=== PATIENT | male | born 1945 | race Caucasian/White ===

== ENCOUNTER 2021-04-11 09:56 | Outpatient (REF) | payer BC, SELFPAY ==
--- NOTE | ~2021-04-11 | XR_ITS ---
EXAMINATION: XR SHOULDER, RIGHT CLINICAL INFORMATION: Right shoulder pain. COMPARISON: None TECHNIQUE: AP external rotation, Grashey, scapular Y, and axillary views of the right shoulder. FINDINGS: Prominent acromioclavicular marginal osteophytes with a possible unfused, corticated osteophyte superiorly. Mild glenohumeral joint space narrowing with tiny marginal osteophytes. Probable bone island within the humeral head. No concerning lytic osseous lesion. No fracture or dislocation. 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
== END 2021-04-11 09:57 | disposition home or self-care (01) ==
LOC: HO.XRAY 09:56
PROVIDERS: PCP Internal Medicine; Visit Provider Psychiatry & Neurology Neurology
DX: M25.511 Pain in right shoulder (principal)
CPT/HCPCS: 73030

== ENCOUNTER 2022-08-08 10:00 | Outpatient (RCR) | payer BC, SELFPAY | END 2022-08-13 13:38 | disposition home or self-care (01) | LOC: HO.PT 10:00 | PROVIDERS: PCP Internal Medicine; Visit Provider Student in an Organized Health Care Education/Training Program | DX: M54.16 Radiculopathy, lumbar region (principal) | CPT/HCPCS: 97014; 97110; 97162 ==

== ENCOUNTER 2023-07-27 11:40 | Observation (INO) | payer MEDICARE, SELFPAY ==
--- NOTE | ~2023-07-27 | CT_ITS ---
EXAMINATION: CT HEAD WITHOUT CONTRAST CLINICAL INFORMATION: Slurred speech. COMPARISON: 12/30/2019 TECHNIQUE: Contiguous axial imaging was performed from the skull base to vertex without intravenous administration of contrast. This CT examination was performed using dose optimization techniques as appropriate, variously including the following: *Automated exposure control *Adjustment of mA and/or kV according to patient size (this includes techniques or standardized protocols for targeted exams where dose is matched to indication/reason for exam; i.e. extremities or head) *Use of iterative reconstruction technique DLP: 597 mGy-cm FINDINGS: There is mild cerebral volume loss with prominence of the lateral and the third ventricles. The cortical sulci are widened appropriately. The fourth ventricle and basal cisterns are normally outlined. There is mild bilateral periventricular and central white matter diminished attenuation. There is an anterior left basal ganglia hypodensity without mass effect. There is no acute territorial defect, hemorrhage or midline shift. Intra-axial spaces are unremarkable. Calvarium: Intact. Maxillofacial sinuses and mastoids: Clear as visualized. CT/CT head/brain wo IV con IMPRESSION: Mild cerebral volume loss and mild bilateral periventricular and central white matter diminished attenuation which is nonspecific but likely to represent microvascular disease. Left anterior basal ganglia hypodensity without mass effect most consistent with an old infarct. No acute intracranial abnormality identified.
--- NOTE | ~2023-07-27 | MR_ITS ---
EXAMINATION: MR BRAIN WITHOUT CONTRAST CLINICAL INFORMATION: Aphasia COMPARISON: Same day CT head, MRI brain 12/31/2019 TECHNIQUE: MRI of the brain was obtained using routine sequences without contrast. FINDINGS: There is no reduced diffusion to suggest acute infarct. Chronic lacunar infarctions along the left caudate head/basal ganglia. Susceptibility weighted sequence is within normal limits. No mass effect, extra-axial collection, midline shift, or other herniation. Generalized cerebral volume loss with associated ventricular and sulcal prominence. Periventricular and subcortical T2/FLAIR hyperintense foci are nonspecific but likely represent chronic microvascular ischemic change. Small foci of T2 hyperintensity in the right lateral temporal lobe may represent a site of prior traumatic injury and appear comparable to the prior examination of 2019. Intracranial flow voids are preserved. Scattered ethmoid air cell mucosal thickening. The mastoid air cells are well-aerated. Bilateral intraocular lens replacements. No focal expansile/destructive osseous lesion. Approximately 5 mm T1 hypointense focus in the pituitary gland (4-13) MR/MR head/brain wo con IMPRESSION: No acute infarction. Chronic lacunar infarctions along the left caudate head/left anterior basal ganglia. There is a questionable T1 hypointense focus along the right aspect of the pituitary gland. Correlation with pituitary function tests is recommended and dedicated sella protocol MRI can be performed if clinically indicated.
[2023-07-27 11:49] VITALS: BP 143/79; PULSE 62; RESP 18; TEMP 36.2; O2SAT 97; BMI 20.6
--- NOTE | 2023-07-27 11:51 | ED_ITS ---
HPI - Neuro Symptoms/Deficit General Chief Complaint: Neuro Symptoms/Deficit Stated Complaint: Stroke 07/23 Time Seen by Provider: 07/27/23 17:26 Source: patient and family () Mode of arrival: ambulatory Limitations: no limitations History of Present Illness HPI Narrative: A 77-year-old male history of Parkinson's disease and multiple history of strokes in the past presented with his for evaluation of speech abnormality. Started 4 days ago on when patient had 5 minutes of aphasia then stated that patient was able to talk after 5 minutes but slower than his baseline, patient also is known to have Parkinson's stated that the patient is more tremors on the right side than his baseline. Patient's symptoms started 4 days ago and patient did not seek medical attention until today. Patient is walking at his baseline except increased tremors, as per family patient is speaking slower than his baseline. Related Data Allergies Allergy/AdvReac Type Severity Reaction Status Date / Time No Known Allergies Allergy Verified 07/27/23 11:54 [No Known Allergies*] Review of Systems 2 Review of Systems: All other systems are reviewed and are negative Constitutional: Reports as per HPI and Reports no additional constitutional complaints Eyes: Reports as per HPI and Reports no additional eye complaints Reports system reviewed and no additional complaints, except as documented Cardiovascular: Reports as per HPI and Reports no additional cardiovascular complaints Respiratory: Reports as per HPI and Reports no additional respiratory complaints Gastrointestinal: Reports as per HPI and Reports no additional gastrointestinal complaints Genitourinary: Reports no additional female genitourinary complaints Musculoskeletal: Reports no additional musculoskeletal complaints Skin/Breast: Reports system reviewed and no additional complaints, except as docu Psychiatric: Reports no additional psychiatric complaints Endocrine: Reports no additional endocrine complaints Hematologic/Lymphatic: Reports no additional hematologic/lymphatic complaints Allergic/Immunologic: Reports no additional allergic/immunologic complaints Reports system reviewed and no additional complaints, except as documented and Reports Abnormal speech present PMFSH Social History Advance Directives: No Advance Directives Information Provided: Yes Physical Exam 2 Vital Signs: Vital Signs: Last Vital Signs Temp 97.2 F 07/27/23 11:49 Pulse 62 07/27/23 11:49 Resp 18 07/27/23 11:49 BP 143/79 H 07/27/23 11:49 Pulse Ox 97 07/27/23 11:49 O2 Del Method Room Air 07/27/23 11:49 BMI result Body Mass Index 20.6 Vital signs have been reviewed and appear to be correct. Blood pressure elevated. Heart rate normal. Respiratory rate normal. Temperature normal. Oxygen saturation normal. Appearance: Alert. Oriented X3. No acute distress. Head: Normal external exam. Normocephalic. Atraumatic. No Hoffman signs noted. No raccoon eyes noted Eyes: PERRLA. EOMI. Conjunctiva and sclera normal. Eyelids normal. ENT: TM's Normal. Pharynx normal. Uvula midline. Moist mucous membranes. No trismus noted. No drooling noted. No muffled voice noted. Neck: Normal inspection. Neck supple. FROM. No adenopathy. Thyroid Normal. No meningeal signs. No neck mass noted. CVS: Normal heart rate and rhythm. Heart sound normal. No murmurs noted. Pulses normal throughout. Respiratory: No respiratory distress. Painless inspiration. Breath sounds normal. No wheezes/rales/rhonchi noted. Chest nontender. No accessory muscle usage noted or decreased air movement noted. Abdomen: Soft and nontender. Bowel sounds normal in all 4 quadrants. No distention noted. No organomegaly noted. No visible injury noted. Back: No CVA tenderness. Full range of motion noted. Skin: Skin warm and dry. Normal skin color. Normal skin turgor. No rashes/lesions/lacerations noted. Extremities: No lower extremity edema. Extremities exhibit normal range of motion. Extremities nontender. Neuro: Oriented X 3. Cranial nerve exam: II-XII are grossly intact No motor deficit. No sensory deficit. Reflexes normal. Course Course Course Narrative: This is a rapid medical exam. Deferred additional HPI, ROS, PE to primary provider. 77 yo male with history of parkinsons disease, previous stroke on ASA 81mg, previous trauma (multiple abdominal surgeries) here with slurred speech since . Will obtain labs, EKG, CT head. VSS Reevaluation(s) Reevaluation #1: A 77-year-old male with history of Parkinson's and CVAs in the past presented after having 5 minutes period of aphasia 4 days ago that partially resolved now, CT head is showing no acute intracranial pathology because patient delayed and seeking medical attention after the symptoms technically no acute intervention is needed at this point, will admit the patient for observation to the medical floor rule out any other reason of the patient's symptoms and get inpatient neurology consultation. Time: 17:59 Medical Decision Making Differential Diagnosis Differential Diagnoses: The differential diagnosis associated with the presentation includes (CVA, TIA, intracranial bleed, exacerbation of Parkinson's, electrolyte abnormality, severe anemia.) Admission/Observation Consideration of admission/observation: Escalation of care including admission/observation considered Consult Healthcare Provider Management of the patient was discussed with: Hospitalist (Dr. Esqueda) Lab Data MDM Lab Attestation statement: I reviewed the patient's lab results. 07/27/23 12:24 07/27/23 12:24 Labs: Lab Results 07/27/23 Range/Units 12:24 WBC 10.0 (4.8-10.8) X10*3/uL RBC 4.78 (4.60-5.80) X10*6/uL Hgb 14.3 (14.0-18.0) g/dl Hct 43.9 (42.0-52.0) % MCV 91.8 (80.0-98.0) fL MCH 29.9 (27.0-33.0) pg MCHC 32.6 (31.0-36.0) g/dl RDW 14.1 (11.0-16.0) % Plt Count 213 (160-400) X10*3/uL MPV 12.6 H (9.4-12.4) fL Immature Gran % (Auto) 0.3 (0.0-0.4) % Neut % (Auto) 70.8 (45-73) % Lymph % (Auto) 14.4 L (20-40) % [place] % (Auto) 12.8 H (2-11) % Eos % (Auto) 1.3 (0-4) % Baso % (Auto) 0.4 (0-2) % Lymph # (Auto) 1.4 (1.2-4.9) X10*3/uL [place] # (Auto) 1.3 H (0.1-1.2) X10*3/uL Eos # (Auto) 0.1 (0.0-0.4) X10*3/uL Baso # (Auto) 0.0 (0.0-0.2) X10*3/uL Abs Immat Gran (auto) 0.03 (0.00-0.03) X10*3/uL Absolute Neuts (auto) 7.1 (2.0-8.3) x10*3/uL Absolute Nucleated RBC 0.000 (0.0-0.012) X10*3/uL Nucleated RBC % (auto) 0.0 (0.0-0.2) /100WBC PT 11.1 (11.1-13.3) SEC INR 0.9 (0.9-1.1) Sodium 142 (135-145) mmol/L Potassium 4.0 (3.3-5.1) mmol/L Chloride 106 (96-108) mmol/L Carbon Dioxide 29 (22-29) mmol/L Anion Gap 11 L (12-20) BUN 31 H (9-16) mg/dL Creatinine 0.86 (0.5-1.4) mg/dL Estim Creat Clear Calc 62.6 Estimated GFR > 60 Random Glucose 89 (60-115) mg/dL Calcium 9.6 (8.4-10.2) mg/dL Magnesium 1.9 (1.6-2.6) mg/dL Total Bilirubin 0.8 (0.0-1.0) mg/dL Direct Bilirubin 0.3 (0.0-0.5) mg/dL AST 21 (5-37) U/L ALT 7 (0-40) U/L Alkaline Phosphatase 58 (39-117) U/L Troponin I High Sens 3.2 (<3.5-35.0) ng/L Total Protein 6.8 (6.5-8.0) g/dL Albumin 4.1 (3.5-5.0) g/dL Independent Interpretation I performed an independent interpretation of an: CT Scan (Head: Mild cerebral volume loss and mild bilateral periventricular and central white matter diminished attenuation which is nonspecific but likely to represent microvascular disease. Left anterior basal ganglia hypodensity without mass effect most consistent with an old infarct. No acute intracr) Radiology Impression Discussion of test interpretation with radiology: I have reviewed the radiologist's reading. Chronic Conditions Patient?s care impacted by: Other (Previous CVAs, Parkinson's disease.) NIH Stroke Scale Time: 17:57 Level of Consciousness: Alert Level of Consciousness Questions: Answers both questions correctly Level of Consciousness Commands: Performs both tasks correctly Best Gaze: Normal Visual: No visual loss Facial Palsy: Normal Motor Arm (Right): No drift Motor Arm (Left): No drift Motor Leg (Right): No drift Motor Leg (Left): No drift Limb Ataxia: Absent Sensory: Normal Best Language: Mild to moderate aphasia Dysarthia: Normal Extinction and Inattention: No abnormality Score: 1 Discharge Plan Discharge Clinical Impression: Transient cerebral ischemia Patient Disposition: Admitted As Inpatient
--- NOTE | 2023-07-27 11:52 | ECG_ITS ---
Test Reason : WEAKNESS Blood Pressure : / mmHG Vent. Rate : 059 BPM Atrial Rate : 059 BPM P-R Int : 128 ms QRS Dur : 086 ms QT Int : 392 ms P-R-T Axes : -11 -08 025 degrees QTc Int : 388 ms Sinus bradycardia Poor data quality RSR' or QR pattern in V1 suggests right ventricular conduction delay Abnormal ECG When compared with ECG of 30-DEC-2019 16:03, Premature ventricular complexes are no longer Present Referred By: Charito Alonso Electronically Signed By:CHAD EPPERSON MD
[2023-07-27 12:36] LABS: MANUAL DIFF FLAG NO
[2023-07-27 12:45] LABS: Basophils Percent Auto 0.4 % (0-2); Eosinophils Absolute Auto 0.1 X10*3/uL (0.0-0.4); Eosinophils Percent Auto 1.3 % (0-4); Hematocrit 43.9 % (42.0-52.0); Hemoglobin 14.3 g/dl (14.0-18.0); Imm Gran Abs Auto 0.03 X10*3/uL (0.00-0.03); Imm Gran Pct Auto 0.3 % (0.0-0.4); Lymphocytes Absolute Auto 1.4 X10*3/uL (1.2-4.9); Lymphocytes Percent Auto 14.4 % (20-40); Mean Corpuscular HGB Conc 32.6 g/dl (31.0-36.0); Mean Corpuscular Hemoglobin 29.9 pg (27.0-33.0); Mean Corpuscular Volume 91.8 fL (80.0-98.0); Mean Platelet Volume 12.6 fL (9.4-12.4); Monocytes Absolute Auto 1.3 X10*3/uL (0.1-1.2); Monocytes Percent Auto 12.8 % (2-11); Neutrophils Absolute Auto 7.1 x10*3/uL (2.0-8.3); Neutrophils Percent Auto 70.8 % (45-73); Platelet Count 213 X10*3/uL (160-400); Red Blood Count 4.78 X10*6/uL (4.60-5.80); Red Cell Distribution Width 14.1 % (11.0-16.0)
[2023-07-27 12:53] LABS: Alanine Aminotransferase 7 U/L (0-40); Albumin Level 4.1 g/dL (3.5-5.0); Alkaline Phosphatase 58 U/L (39-117); Anion Gap 11 (12-20); Aspartate Amino Transferase 21 U/L (5-37); Bilirubin Direct 0.3 mg/dL (0.0-0.5); Bilirubin Total 0.8 mg/dL (0.0-1.0); Blood Urea Nitrogen 31 mg/dL (9-16); Calcium 9.6 mg/dL (8.4-10.2); Carbon Dioxide 29 mmol/L (22-29); Chloride 106 mmol/L (96-108); Creatinine Clr Calc Pharmacy 62.6; Estimated Glomerular Filt Rate > 60; Glucose Random 89 mg/dL (60-115); Magnesium 1.9 mg/dL (1.6-2.6); Sodium 142 mmol/L (135-145); Total Protein 6.8 g/dL (6.5-8.0)
[2023-07-27 12:54] LABS: INTERNATIONAL NORM RATIO 0.9 (0.9-1.1); Prothrombin Time 11.1 SEC (11.1-13.3)
[2023-07-27 12:59] LABS: Troponin-I High Sensitivity 3.2 ng/L (<3.5-35.0)
--- NOTE | 2023-07-27 17:16 | PC.NURSE ---
pt presents with at bedside- sts that on he had a bout of expressive aphasia that lasted approx 5min- pt recalls entire event and sts that this occured one time a few years prior. pt has PMHx of parkinsons which he take sinemet for. denies BOND, CP, N/V/D, dizziness, blurred vision. pt speaking in full complete sentences clear thought pattern. pt had tremor at baseline d/t his parkinson's.
--- NOTE | 2023-07-27 18:23 | PM.IMHP ---
History of Present Illness Date of Service: 07/27/23 Chief Complaint: aphasia 77M PMH parkinsons, CVA - no obvious residual deficits, nephrolithiasis presented with episode of aphasia 4 days ptp. on thanksgi patient reports 5 minutes of being unable to speak. then mostly back to normal. states patient refused to come to hospital until today. that she noticed he seems more fatigued and memory appears worse than baseline. patient denies this and feels he is back to baseline. CTH negative for acute stroke. Review of Systems Review of Systems: Yes all other systems are reviewed and are negative PMFSH Advance Directives: No Advance Directives Information Provided: Yes Meds Allergies Allergy/AdvReac Type Severity Reaction Status Date / Time No Known Allergies Allergy Verified 07/27/23 11:54 [No Known Allergies*] Active Medications: Current Medications Aspirin (Aspirin Enteric Coated 81 Mg Tablet.Dr) 81 mg PO DAILY ALESSANDRO Physical Exam Vital Signs and Narrative: Vital Signs: Last Vital Signs Temp 97.2 F 07/27/23 11:49 Pulse 62 07/27/23 11:49 Resp 18 07/27/23 11:49 BP 143/79 H 07/27/23 11:49 Pulse Ox 97 07/27/23 11:49 O2 Del Method Room Air 07/27/23 11:49 BMI result Body Mass Index 20.6 General: AO X 3, no acute distress Resp: CTA bilateral, no accessory muscles used CVS: S1,S2,RRR GI: soft, non tender, non distended Neuro: motor grossly intact, alert, parkinsonian tremor, rigidity Psych: appropriate affect, appropriate insight Results Labs 07/27/23 12:24 07/27/23 12:24 Labs: Laboratory Results - last 24 hr 07/27/23 12:24 MCV 91.8 MCH 29.9 MCHC 32.6 RDW 14.1 Plt Count 213 MPV 12.6 H Immature Gran % (Auto) 0.3 Neut % (Auto) 70.8 Lymph % (Auto) 14.4 L [place] % (Auto) 12.8 H Eos % (Auto) 1.3 Baso % (Auto) 0.4 Lymph # (Auto) 1.4 [place] # (Auto) 1.3 H Eos # (Auto) 0.1 Baso # (Auto) 0.0 Abs Immat Gran (auto) 0.03 Absolute Neuts (auto) 7.1 Absolute Nucleated RBC 0.000 Nucleated RBC % (auto) 0.0 PT 11.1 INR 0.9 Anion Gap 11 L Estim Creat Clear Calc 62.6 Estimated GFR > 60 Random Glucose 89 Calcium 9.6 Magnesium 1.9 Total Bilirubin 0.8 Direct Bilirubin 0.3 AST 21 ALT 7 Alkaline Phosphatase 58 Total Protein 6.8 Albumin 4.1 Imaging Radiologist's Impressions: Impressions Head CT 07/27/23 12:58 IMPRESSION: Mild cerebral volume loss and mild bilateral periventricular and central white matter diminished attenuation which is nonspecific but likely to represent microvascular disease. Left anterior basal ganglia hypodensity without mass effect most consistent with an old infarct. No acute intracranial abnormality identified. Assessment and Plan (1) Aphasia: Status: Acute Plan 77M PMH parkinsons, CVA - no obvious residual deficits, nephrolithiasis presented with episode of aphasia 4 days ptp. transient aphasia ?tia vs systemic condition in parkinsons such as UTI observe on tele asa 81, neuro eval, mri check ua parkinsons continue sinemet dvt prophylaxis - lovenox full code Quality Stroke Does the patient have a stroke diagnosis?: No VTE Prior VTE?: No VTE Risk Level:: Medical - moderate - high VTE Device Contraindication: Treatment Not Indicated VTE Drug Contraindication: N/A - Med Ordered
[2023-07-27 18:25] VITALS: BP 179/87; PULSE 58; RESP 14; O2SAT 99
[2023-07-27 19:58] VITALS: BP 150/87; PULSE 66; RESP 14
--- NOTE | 2023-07-27 20:28 | PHA.MEDREC ---
Pharmacy Consult ? Medication Reconciliation Pharmacy has completed the medication reconciliation.Pt is very unclear on medications and doses he takes at home. He was able to give a vague idea of home meds but he says he takes what [facility] fills through mail order for him. I contacted [facility] on [facility] and they got the list of medications from the mail order pharmacy for me (spoke to Jyothi [phone]).
[2023-07-27] MEDS: Carbidopa/Levodopa 25/100 TABLET 1 TAB PO (21:54)
[2023-07-27] MEDS: Sennosides/Docusate Sodium TABLET 1 TAB PO (21:54)
[2023-07-27 21:56] VITALS: BP 134/53; PULSE 58; RESP 14; TEMP 37.1; O2SAT 100
--- NOTE | 2023-07-27 21:57 | PC.NURSE ---
Pt brought to MRI by this RN and Miladis VILLAFANA. Patient now back resting comfortably, offers no complaints to this RN. Patient was able to walk with steady gait around MRI room and back to stretcher. Pt has 20g iv to RAC
--- NOTE | 2023-07-27 22:14 | PC.NURSE ---
pt consumed 2 ham sandwiches gingerale and rice crackers without difficulty- consumed 100% pt a&o x4 able to make needs known call jo within reach
[2023-07-28] MEDS: 0.9 % Sodium Chloride Flush 3 ML SYRINGE IVFLUSH ×2 (00:58→08:56)
[2023-07-28 01:42] VITALS: BP 141/70; PULSE 54; RESP 14; TEMP 36.5; O2SAT 98
[2023-07-28 01:50] LABS: Appearance Urine Clear; Color Urine Yellow; Glucose Urine UA Negative (Negative); Leukocyte Esterase Urine Negative (Negative); Nitrite Urine Negative (Negative); Urine Blood Negative (Negative); Urine Ketones Negative (Negative); Urine Protein Negative (Neg-Trace)
[2023-07-28 04:45] VITALS: BP 156/82; PULSE 57; RESP 12; TEMP 36.7; O2SAT 92
[2023-07-28 06:13] LABS: Anion Gap 10 (12-20); Blood Urea Nitrogen 26 mg/dL (9-16); Calcium 9.2 mg/dL (8.4-10.2); Carbon Dioxide 29 mmol/L (22-29); Chloride 108 mmol/L (96-108); Creatinine Clr Calc Pharmacy 67.3; Estimated Glomerular Filt Rate > 60; Glucose Fasting 87 mg/dL (60-99); Sodium 143 mmol/L (135-145)
[2023-07-28 06:31] LABS: Hematocrit 41.9 % (42.0-52.0); Hemoglobin 13.8 g/dl (14.0-18.0); Mean Corpuscular HGB Conc 32.9 g/dl (31.0-36.0); Mean Corpuscular Hemoglobin 29.9 pg (27.0-33.0); Mean Corpuscular Volume 90.9 fL (80.0-98.0); Mean Platelet Volume 12.7 fL (9.4-12.4); Platelet Count 198 X10*3/uL (160-400); Red Blood Count 4.61 X10*6/uL (4.60-5.80); Red Cell Distribution Width 14.2 % (11.0-16.0); White Blood Count 7.6 X10*3/uL (4.8-10.8)
[2023-07-28 07:41] VITALS: BP 118/64; PULSE 63; RESP 14; TEMP 36.6; O2SAT 98
[2023-07-28] MEDS: Aspirin Enteric Coated 81 MG TABLET.DR PO (08:55)
[2023-07-28] MEDS: Carbidopa/Levodopa 25/100 TABLET 1 TAB PO (08:55)
[2023-07-28] MEDS: Atorvastatin Calcium 40 MG TABLET PO (08:55)
[2023-07-28] MEDS: Enoxaparin Sodium 40 MG/0.4 ML SYRINGE SUBCUT (08:56)
--- NOTE | 2023-07-28 09:00 | PC.NURSE ---
pt is alert and oriented, skin pwd, respirations even and unlabored, ls clear, pt's nuero all intact, speaking in full clear sentences, no visible facial droop, no drift and equal and strong grasps, but does have a visible tremor do to the pt's Parkinson, denies pain at this time, ns on the monitor and vs stable
--- NOTE | 2023-07-28 09:52 | P.CNNE_ITS ---
History of Present Illness Data of Consult Service Date: 07/28/23 Primary Care Provider: Earlene Recio MD [facility] Reason for consult: Aphasia 77 years old man being treated for Parkinson's disease came to hospital with symptoms of difficulty speaking. He said that few days ago he was with group of people when he could not come up with right words. It was not clear if he became mute, rather he was having difficulty finding the right words. There was no other associated symptom at that time including no numbness or weakness or headache. There was no mental confusion is he remember that episode. Later he shared that with his and was coaxed to come to emergency room. Review of Systems 2 Review of Systems: No cold or flu-like illness headache or head trauma. [facility] Social History Patient Tobacco Use Status: Former Tobacco user Smoked in Last 30 Days: No Use of substances other than those prescribed or required for medical reasons: No Advance Directives: No Advance Directives Information Provided: Yes Nutrition Risks: No Nutritional Risk Meds Allergies Allergy/AdvReac Type Severity Reaction Status Date / Time No Known Allergies Allergy Verified 07/27/23 11:54 [No Known Allergies*] Active Medications: Current Medications Aspirin (Aspirin Enteric Coated 81 Mg Tablet.) 81 mg PO DAILY [facility] Last Admin: 07/28/23 08:55 Dose: 81 mg Atorvastatin Calcium (Atorvastatin Calcium 40 Mg Tablet) 40 mg PO DAILY [facility] Last Admin: 07/28/23 08:55 Dose: 40 mg Carbidopa/Levodopa (Carbidopa/Levodopa 25/100 Tablet) 1 tab PO QID [facility] Last Admin: 07/28/23 08:55 Dose: 1 tab Enoxaparin Sodium (Enoxaparin Sodium 40 Mg/0.4 Ml Syringe) 40 mg SUBCUT Q24H [facility] Last Admin: 07/28/23 08:56 Dose: 40 mg Non-Formulary Medication (Minocycline) 50 mg PO DAILY [facility] Non-Formulary Medication (Rasagiline) 1 mg PO DAILY [facility] Senna/Docusate Sodium (Sennosides/Docusate Sodium Tablet) 1 tab PO BEDTIME [facility] Last Admin: 07/27/23 21:54 Dose: 1 tab Sodium Chloride (0.9 % Sodium Chloride Flush 3 Ml Syringe) 3 ml IVFLUSH QSHIFT [facility] Last Admin: 07/28/23 08:56 Dose: 3 ml Home Medications Medication Instructions Recorded Confirmed Last Taken Type aspirin 81 mg tablet,delayed 81 mg PO DAILY 07/27/23 07/27/23 07/27/23 History release atorvastatin 40 mg tablet 40 mg PO DAILY 07/27/23 07/27/23 07/27/23 History carbidopa 25 mg-levodopa 100 mg 1 tab PO QID 07/27/23 07/27/23 07/27/23 History tablet minocycline 50 mg capsule 50 mg PO DAILY 07/27/23 07/27/23 07/27/23 History rasagiline 1 mg tablet 1 mg PO DAILY 07/27/23 07/27/23 07/27/23 History sennosides 8.6 mg-docusate sodium 1 tab-cap PO BEDTIME 07/27/23 07/27/23 07/26/23 History 50 mg tablet (Senna Plus) Physical Exam 2 Vital Signs: Vital Signs: Last Vital Signs Temp 98 F 07/28/23 07:41 Pulse 63 07/28/23 07:41 Resp 14 07/28/23 07:41 BP 118/64 07/28/23 07:41 Pulse Ox 98 07/28/23 07:41 O2 Del Method Room Air 07/28/23 07:41 BMI result Body Mass Index 20.6 Neuro: Other: He is alert and awake with normal spontaneity of speech fluency comprehension and affect. His following commands. Face is symmetrical. There is mild reduction of facial expression blinking. Moderate cogwheeling rigidity is noted in upper extremities. There is no focal weakness. Results Labs 07/28/23 05:03 07/28/23 05:03 Labs: Short CBC 07/27/23 07/28/23 Range/Units 12:24 05:03 WBC 10.0 7.6 (4.8-10.8) X10*3/uL Hgb 14.3 13.8 L (14.0-18.0) g/dl Hct 43.9 41.9 L (42.0-52.0) % Plt Count 213 198 (160-400) X10*3/uL BMP 07/27/23 07/28/23 12:24 05:03 Sodium 142 143 Potassium 4.0 4.0 Chloride 106 108 Carbon Dioxide 29 29 BUN 31 H 26 H Creatinine 0.86 0.80 Calcium 9.6 9.2 Liver Function 07/27/23 Range/Units 12:24 Total Bilirubin 0.8 (0.0-1.0) mg/dL Direct Bilirubin 0.3 (0.0-0.5) mg/dL AST 21 (5-37) U/L ALT 7 (0-40) U/L Alkaline Phosphatase 58 (39-117) U/L Albumin 4.1 (3.5-5.0) g/dL Urine 07/28/23 Range/Units 01:41 Urine Color Yellow Urine Appearance Clear Urine pH 6.0 (5.0-9.0) Ur Specific [place] 1.020 (1.005-1.025) Urine Protein Negative (Neg-Trace) mg/dL Urine Glucose (UA) Negative (Negative) mg/dL Noncontrast head CT and noncontrast MRI of brain were reviewed. Mild to moderate atrophy was noted but somewhat more so in left frontal area and perisylvian area with mild microvascular disease. Assessment and Plan (1) Aphasia: Status: Acute 77 years old man with partial symptoms of motor aphasia with no focal lesion such as stroke or tumor to explain it. Overall clinical story was not suggestive of a seizure or migraine. He does have significant atrophy specially in left frontal and perisylvian areas that can explain this problem. He might go into clinical picture of primary progressive aphasia and future years. There is no particular treatment. At this time my recommendation is continuation of Parkinson's medications, reassurance and education and treatment of anxiety if that was there. Procedures Date of Service Date of Service: 07/28/23
--- NOTE | 2023-07-28 10:09 | P.DS_ITS ---
DS: Providers Provider Date of Service: 07/28/23 Date of admission: 07/27/23 18:21 Primary care physician: Earlene Recio MD Consults: 07/27/23 18:21 Consult to Neurology Routine Consulting Provider: [facility] Reason for consultation: aphasia DS: Diagnosis Discharge Diagnosis (1) Aphasia: Status: Acute DS: Summary Hospital Course Hospital Course: from initial hpi: 77M PMH parkinsons, CVA - no obvious residual deficits, nephrolithiasis presented with episode of aphasia 4 days ptp. on thanksgiving patient reports 5 minutes of being unable to speak. then mostly back to normal. states patient refused to come to hospital until today. that she noticed he seems more fatigued and memory appears worse than baseline. patient denies this and feels he is back to baseline. CTH negative for acute stroke. hospital course: patient was observed for his transient aphasia event, mri was negative for acute infarct, it did show questionable lesion on pituitary, outpatient follow up with neuro recommended. was continued on asa, statin, seen by neuro, likely related to significant atrophy of left frontal and perisylvian areas, possible primary progressive aphasia. no specific treatement available. for parkinsons was continued on sinemet. patient will be dicharged home. Time Attestation Discharge coordination time: Greater than 30 minutes Quality: Safe Use of Opioids Does Pt have an Active Cancer Diagnosis on the Problem List?: No Quality: Stroke Does the patient have a stroke diagnosis?: No Physical Exam Vital Signs: Vital Signs: Last Vital Signs Temp 98 F 07/28/23 07:41 Pulse 63 07/28/23 07:41 Resp 14 07/28/23 07:41 BP 118/64 07/28/23 07:41 Pulse Ox 98 07/28/23 07:41 O2 Del Method Room Air 07/28/23 07:41 BMI result Body Mass Index 20.6 Neuro: Other: He is alert and awake with normal spontaneity of speech fluency comprehension and affect. His following commands. Face is symmetrical. There is mild reduction of facial expression blinking. Moderate cogwheeling rigidity is noted in upper extremities. There is no focal weakness. DS: Data Data Completed and Pending Labs on day of discharge: Laboratory Results - last 24 hr 07/27/23 07/28/23 07/28/23 12:24 01:41 05:03 WBC 10.0 7.6 RBC 4.78 4.61 Hgb 14.3 13.8 L Hct 43.9 41.9 L MCV 91.8 90.9 MCH 29.9 29.9 MCHC 32.6 32.9 RDW 14.1 14.2 Plt Count 213 198 MPV 12.6 H 12.7 H Immature Gran % (Auto) 0.3 Neut % (Auto) 70.8 Lymph % (Auto) 14.4 L [place] % (Auto) 12.8 H Eos % (Auto) 1.3 Baso % (Auto) 0.4 Lymph # (Auto) 1.4 [place] # (Auto) 1.3 H Eos # (Auto) 0.1 Baso # (Auto) 0.0 Abs Immat Gran (auto) 0.03 Absolute Neuts (auto) 7.1 Absolute Nucleated RBC 0.000 0.000 Nucleated RBC % (auto) 0.0 0.0 PT 11.1 INR 0.9 Sodium 142 143 Potassium 4.0 4.0 Chloride 106 108 Carbon Dioxide 29 29 Anion Gap 11 L 10 L BUN 31 H 26 H Creatinine 0.86 0.80 Estim Creat Clear Calc 62.6 67.3 Estimated GFR > 60 > 60 Random Glucose 89 Fasting Glucose 87 Calcium 9.6 9.2 Magnesium 1.9 Total Bilirubin 0.8 Direct Bilirubin 0.3 AST 21 ALT 7 Alkaline Phosphatase 58 Troponin I High Sens 3.2 Total Protein 6.8 Albumin 4.1 Urine Color Yellow Urine Appearance Clear Urine pH 6.0 Ur Specific [place] 1.020 Urine Protein Negative Urine Glucose (UA) Negative Urine Ketones Negative Urine Blood Negative Urine Nitrite Negative Ur Leukocyte Esterase Negative Discharge Plan Discharge Anticipated Discharge Date/Time: 07/28/23 10:07 Patient Disposition: Home, Self-Care Discharge Diagnosis: transient aphasia Referrals: Earlene Recio MD [Primary Care Provider] - 1 Week Discharge Medications: Continued atorvastatin 40 mg Tablet 40 mg PO DAILY minocycline 50 mg capsule 50 mg PO DAILY carbidopa-levodopa 25-100 mg Tablet 1 tab PO QID rasagiline 1 mg tablet 1 mg PO DAILY sennosides-docusate sodium [Senna Plus] 8.6-50 mg Tablet 1 tab-cap PO BEDTIME aspirin 81 mg Tablet,Delayed Release (Dr/Ec) 81 mg PO DAILY Discharge Orders: Discharge Order (Routine); Ordered 07/28/23 Ordered By: Mario Esqueda Diet: Advance to usual diet Activity on Discharge: As tolerated Stand Alone Forms: Patient Portal Discharge page Care Plan Goals: manage parkinsons Health Concerns: parkinsons, history of cva Plan of Treatment: continue meds as prescribed, follow up with neuro, There is a questionable T1 hypointense focus along the right aspect of the pituitary gland. Correlation with pituitary function tests is recommended and dedicated sella protocol MRI can be performed if clinically indicated. Assessment: see above
--- NOTE | 2023-07-28 10:12 | MHC.CM.PN ---
Patient has been medically cleared for dc to home today, self care.
--- NOTE | 2023-07-28 10:49 | MHC.CM.PN ---
ROBIN 07/28. 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 Pt does not use any DME or have any services. Goal is for pt to return home with his spouse. Per Phyllis she is HCP and POA, copy requested. Phyllis will transport him home. PCP: Dr. Earlene Recio
[2023-07-28 11:04] VITALS: BP 170/66; PULSE 60; RESP 16; TEMP 36.8; O2SAT 98
== END 2023-07-28 11:05 | disposition home or self-care (01) ==
LOC: HO.ED 17:59 → HO.EDOVER 18:27
PROVIDERS: Nurse Practitioner Family; Admitting Provider Internal Medicine; Emergency Provider Emergency Medicine; PCP Internal Medicine; Visit Provider Internal Medicine
DX: R47.01 Aphasia (principal); G20.A1 Parkinson's disease without dyskinesia, without mention of fluctuations; R53.1 Weakness; R47.81 Slurred speech; N20.0 Calculus of kidney; Z86.73 Personal history of transient ischemic attack (TIA), and cerebral infarction without residual deficits; Z79.899 Other long term (current) drug therapy
CPT/HCPCS: 36415; 70450; 70551; 80048; 80076; 81003; 83735; 84484; 85025; 85027; 85610; 93005; 96372; 99222; 99285; J1650

== ENCOUNTER → 2023-07-27 18:21 | Outpatient (BNV) | payer MEDICARE, BC, SELFPAY | PROVIDERS: Admitting Provider Internal Medicine; Emergency Provider Emergency Medicine; PCP Internal Medicine; Visit Provider Internal Medicine | DX: R47.01 Aphasia (principal) | CPT/HCPCS: 99222; 99239 ==

== ENCOUNTER 2023-08-05 10:25 | Outpatient (REF) | payer MEDICARE, SELFPAY ==
--- NOTE | ~2023-08-05 | XR_ITS ---
EXAMINATION: XR WRIST, LEFT XR HAND, LEFT CLINICAL INFORMATION: Pain COMPARISON: None available. TECHNIQUE: 3 views of the left hand and wrist FINDINGS: No acute visible fracture or dislocation. Mild multi joint arthritic changes. Joint spaces and alignment are otherwise maintained. Soft tissues are unremarkable. XR/XR hand wrist LT IMPRESSION: 1. No acute visible fracture or dislocation. 2. Mild multi joint arthritic changes.
--- NOTE | ~2023-08-05 | XR_ITS ---
EXAMINATION: XR WRIST, RIGHT XR HAND, RIGHT CLINICAL INFORMATION: Pain COMPARISON: None available. TECHNIQUE: 3 views of the right hand and wrist FINDINGS: No acute visible fracture or dislocation. Mild multi joint arthritic changes. Joint spaces and alignment are otherwise maintained. Soft tissues are unremarkable. Atherosclerotic calcifications are noted. XR/XR hand wrist RT IMPRESSION: 1. No acute visible fracture or dislocation. 2. Mild multi joint arthritic changes.
== END 2023-08-05 10:26 | disposition home or self-care (01) ==
LOC: HO.HOSX 10:25
PROVIDERS: PCP Internal Medicine; Visit Provider Physical Medicine & Rehabilitation
DX: M79.641 Pain in right hand (principal); M79.642 Pain in left hand
CPT/HCPCS: 73110; 73130

== ENCOUNTER 2023-08-05 10:25 | Outpatient (AMB) | payer MEDICARE, SELFPAY ==
--- NOTE | 2023-08-05 10:29 | A.OFFVIS_ITS ---
Intake Intake Visit Reasons: psych arnp- Righthand pain Intake Note: Jl 77 yr old male who is right had dominant presents today for her a new patient visit for bilateral hand holder. Hx of Parkinsons. States he has stiffness, pain and cramping of his fingers. Also has weakness and his hands always feels cold. Has difficulty with pinching ad gripping. Denies recent injury. Allergies No Known Allergies [No Known Allergies*] Allergy (Verified 08/05/23 10:35) Medication List - Last Reconciled 08/05/23 by Melanie Ferraro MD aspirin 81 mg PO DAILY atorvastatin 40 mg PO DAILY carbidopa-levodopa 25-100 mg 1 tab PO QID minocycline 50 mg PO DAILY rasagiline 1 mg PO DAILY sennosides-docusate sodium 8.6-50 mg (Senna Plus) 1 tab-cap PO BEDTIME HPI HPI Comments History of Present Illness Details History of Parkinson's for 9 days, presented to ER and admitted for development of aphasia. Neurology notes reviewed. They tell me that he has stroke. Aphasia is improved. says he still gets lightheaded if gets up too fast. Still slur. Follows with Dr. Martin. Presenting today with bilateral hand pain. Here with /crm marketing specialist. Tells me that index fingers, bilateral, locks. On/off for years. Xray done today did not show significant arthritis or any fracture. He does have resting tremors. Feels some tightness on wrist and fingers, don't seem to do exactly as he wants . Follows Dr. Reilly for back injections. REPLACED BY [facility] Social History Patient Tobacco Use Status: Former Tobacco user service: No Review of Systems Const All systems reviewed & are unremarkable except as noted in HPI and below Physical Exam Constitutional: Patient appears to be in no acute distress, well nourished and well developed. MSK: Inspection reveals appropriate head and neck positioning. No pain with palpation over the neck musculature. Cervical ROM was full. Spurling's sign negative. Bilateral shoulder ROM WNL. No ligamentous laxity or crepitance. No increased effusion. Hawkin's test is negative. No joint effusion noted. No deformity noted. No intrinsic hand weakness noted. No atrophy noted. Deidra test negative. Carpal compression test negative. Tinel sign negative. No triggering. Possible swan-neck on left index finger. Strength is 5/5 in all muscle groups tested. No increased tone noted. Neurological: Neurologic examination of the upper and lower extremities was nonfocal with intact sensation, muscle stretch reflexes and without focal motor deficits . North?s negative bilaterally. Rogelio 0. Gait is non-antalgic without loss of balance. Results Reviewed Results Reviewed: MR BRAIN WITHOUT CONTRAST CLINICAL INFORMATION: Aphasia COMPARISON: Same day CT head, MRI brain 12/31/2019 TECHNIQUE: MRI of the brain was obtained using routine sequences without contrast. FINDINGS: There is no reduced diffusion to suggest acute infarct. Chronic lacunar infarctions along the left caudate head/basal ganglia. Susceptibility weighted sequence is within normal limits. No mass effect, extra-axial collection, midline shift, or other herniation. Generalized cerebral volume loss with associated ventricular and sulcal prominence. Periventricular and subcortical T2/FLAIR hyperintense foci are nonspecific but likely represent chronic microvascular ischemic change. Small foci of T2 hyperintensity in the right lateral temporal lobe may represent a site of prior traumatic injury and appear comparable to the prior examination of 2019. Intracranial flow voids are preserved. Scattered ethmoid air cell mucosal thickening. The mastoid air cells are well-aerated. Bilateral intraocular lens replacements. No focal expansile/destructive osseous lesion. Approximately 5 mm T1 hypointense focus in the pituitary gland (4-13) MR/MR head/brain wo con IMPRESSION: No acute infarction. Chronic lacunar infarctions along the left caudate head/left anterior basal ganglia. There is a questionable T1 hypointense focus along the right aspect of the pituitary gland. Correlation with pituitary function tests is recommended and dedicated sella protocol MRI can be performed if clinically indicated. Date of Service: 07/27/23 Procedure(s): CT head/brain wo IV con Accession Number(s): [id number] cc: Earlene Recio MD; Charito Ray NP~ EXAMINATION: CT HEAD WITHOUT CONTRAST CLINICAL INFORMATION: Slurred speech. COMPARISON: 12/30/2019 TECHNIQUE: Contiguous axial imaging was performed from the skull base to vertex without intravenous administration of contrast. This CT examination was performed using dose optimization techniques as appropriate, variously including the following: *Automated exposure control *Adjustment of mA and/or kV according to patient size (this includes techniques or standardized protocols for targeted exams where dose is matched to indication/reason for exam; i.e. extremities or head) *Use of iterative reconstruction technique DLP: 597 mGy-cm FINDINGS: There is mild cerebral volume loss with prominence of the lateral and the third ventricles. The cortical sulci are widened appropriately. The fourth ventricle and basal cisterns are normally outlined. There is mild bilateral periventricular and central white matter diminished attenuation. There is an anterior left basal ganglia hypodensity without mass effect. There is no acute territorial defect, hemorrhage or midline shift. Intra-axial spaces are unremarkable. Calvarium: Intact. Maxillofacial sinuses and mastoids: Clear as visualized. CT/CT head/brain wo IV con IMPRESSION: Mild cerebral volume loss and mild bilateral periventricular and central white matter diminished attenuation which is nonspecific but likely to represent microvascular disease. Left anterior basal ganglia hypodensity without mass effect most consistent with an old infarct. No acute intracranial abnormality identified. I reviewed records from the following: Neurology Hospitalist Assessment & Plan Assessment & Plan (1) Bilateral hand pain: Code(s): M79.641 - Pain in right hand; M79.642 - Pain in left hand (2) Dystonia: Code(s): G24.9 - Dystonia, unspecified Plan Independently reviewed xrays today - no fracture or significant arthritis. On exam, does not appear to be triggering finger. I wonder if he is developing dystonia or spasticity that we sometimes see in Parkinsons. It is not bad as of now, Rogelio 0 on exam. I do not think needs botox injection yet. We can trial antispasticity medications but warned that these can cause lightheadedness or dizziness. We can start with tizanidine 2mg qd for 2 weeks, can increase to BID in 2 weeks if tolerates. Call if any side effects. Assessment and plan discussed with patient, and patient was agreeable. All questions were answered thoroughly. Melanie Ferraro MD, LENY Board Certified, [place] [employer] and Rehabilitation (ABPMR) Board Certified, [place] Board [employer] Electrodiagnostic [employer] (ABEM) Orders: Orders XR hand wrist RT Today M79.641 - Pain in right hand, M79.642 - Pain in left hand XR hand wrist LT Today M79.641 - Pain in right hand, M79.642 - Pain in left hand Medications: New tizanidine Start with 2 mg once a day for 2 weeks. Watch out for lightheadedness or dizziness. May increase to twice a day after 2 weeks if tolerating 2 mg PO Q8H PRN 60 tabs 0RF muscle spasticity G24.9 - Dystonia, unspecified Coding Level of Care Code New Pt Level 4 (64766) Diagnoses Bilateral hand pain M79.641; M79.642 Dystonia G24.9
== END 2023-08-05 11:32 | disposition home or self-care (01) ==
PROVIDERS: PCP Internal Medicine; Visit Provider Physical Medicine & Rehabilitation
DX: M79.641 Pain in right hand (principal); M79.642 Pain in left hand; G24.9 Dystonia, unspecified
CPT/HCPCS: 99204

== ENCOUNTER 2023-09-08 09:40 | Outpatient (REF) | payer MEDICARE, SELFPAY ==
--- NOTE | ~2023-09-08 | US_ITS ---
EXAMINATION: US EXTRACRANIAL CAROTID DUPLEX, BILATERAL CLINICAL INFORMATION: TIA. COMPARISON: None available. TECHNIQUE: Real-time ultrasound and Doppler techniques (integrating B-mode 2-D vascular images, Doppler spectral analysis and color-flow Doppler imaging) were utilized to interrogate the extracranial carotid arteries, the vertebral arteries and proximal subclavian arteries bilaterally. The degree of stenosis is determined by criteria similar to NASCET. FINDINGS: Right Side: 1. There is moderate atherosclerotic plaque seen in the bifurcation/proximal ICA region. 2. The common carotid artery PSV proximally is 85 cm/s and distally 53 cm/s. 3. The proximal internal carotid artery velocities are 80 cm/s systolic and 17 cm/s diastolic. 4. The proximal external carotid artery PSV is 61 cm/s. 5. The vertebral artery shows antegrade flow. 6. The subclavian artery waveforms are normal. Left Side: 1. There is moderate atherosclerotic plaque seen in the bifurcation/proximal ICA region. 2. The common carotid artery PSV proximally is 73 cm/s and distally 63 cm/s. 3. The proximal internal carotid artery velocities are 87 cm/s systolic and 25 cm/s diastolic. 4. The proximal external carotid artery PSV is 56 cm/s. 5. The vertebral artery shows antegrade flow. 6. The subclavian artery waveforms are normal. US/US carotid duplex BI IMPRESSION: 1. RIGHT: Minimal, non-hemodynamically significant stenosis of the proximal right internal carotid artery corresponding to a 0-49% stenosis by velocity criteria. 2. LEFT: Minimal, non-hemodynamically significant stenosis of the proximal left internal carotid artery corresponding to a 0-49% stenosis by velocity criteria.
== END 2023-09-08 09:41 | disposition home or self-care (01) ==
LOC: HO.US 09:40
PROVIDERS: Visit Provider Psychiatry & Neurology Neurology
DX: G45.9 Transient cerebral ischemic attack, unspecified (principal)
CPT/HCPCS: 93880

== ENCOUNTER 2023-10-07 10:01 | Outpatient (AMB) | payer MEDICARE, SELFPAY ==
--- NOTE | 2023-10-07 10:11 | A.OFFVIS_ITS ---
Intake Vital Signs 10/07/23 10:17 Height 5 ft 8 in Weight 123 lb BMI 18.7 Handedness Right Intake Visit Reasons: ov- Righthand pain Intake Note: Jl is a 77 year old right hand dominant male who presents today for a follow up of his right hand pain. At his last appointment he was prescribed Tizanidine for concerns of dystonia. He states not having pain, however his hands feel week. Patient reports his hands are always cold. Yet when he opens his hands he notices its very slow per patient. Hx of parkinson's. He informed me when he was taking the tizanidine it didn't help. Allergies No Known Allergies [No Known Allergies*] Allergy (Verified 08/05/23 10:35) Medication List - Last Reconciled 10/07/23 by Melanie Ferraro MD aspirin 81 mg PO DAILY atorvastatin 40 mg PO DAILY carbidopa-levodopa 25-100 mg 1 tab PO QID minocycline 50 mg PO DAILY rasagiline 1 mg PO DAILY sennosides-docusate sodium 8.6-50 mg (Senna Plus) 1 tab-cap PO BEDTIME tizanidine 2 mg PO Q8H PRN HPI HPI Comments History of Present Illness Details History of Parkinson's for 9 days, presented to ER and admitted for development of aphasia. Neurology notes reviewed. They tell me that he has stroke. Aphasia is improved. says he still gets lightheaded if gets up too fast. Still slur. Follows with Dr. Martin. Initially presented with bilateral hand pain. Here with /eligibility examiner. Reported that index fingers, bilateral, locks. On/off for years. Xray done did not show significant arthritis or any fracture. He does have resting tremors. Feels some tightness on wrist and fingers, don't seem to do exactly as he wants . Follows Dr. Reilly for back injections. Reports no change or new incidence since I last saw him. Tremor on right hand looks more obvious. Speech today is slower to initiate. Says pulling on left fingers, especially 2nd digit. Less so on right side. Tried tizanidine for 4 weeks without any relief. Discontinued without any complications or side effects. Remains independent with ADLs. Still drives. Says he is being careful. is in the hospital for BPD. [facility] Medical History (Updated 10/07/23 @ 12:03 by Melanie Ferraro MD) Parkinsons disease Social History Patient Tobacco Use Status: Former Tobacco user service: No Physical Exam Vital Signs: BMI result Body Mass Index 18.7 Constitutional: Patient appears to be in no acute distress, well nourished and well developed. MSK: Much more evident tremors. Speech is slower to initiate. Cervical ROM was full. Spurling's sign negative. No joint effusion noted. No deformity noted. No intrinsic hand weakness noted. No atrophy noted. Deidra test negative. Carpal compression test negative. Tinel sign negative. No triggering. Strength is 5/5 in all muscle groups tested. No increased tone noted. Neurological: Neurologic examination of the upper and lower extremities was nonfocal with intact sensation, muscle stretch reflexes and without focal motor deficits . North?s negative bilaterally. Rogelio 0. Gait is non-antalgic without loss of balance. Results Reviewed Results Reviewed: Ordering Physician: Melanie Nava Date of Service: 08/05/23 Procedure(s): XR hand wrist LT Accession Number(s): [id number] cc: Melanie Nava; Earlene Recio MD~ EXAMINATION: XR WRIST, LEFT XR HAND, LEFT CLINICAL INFORMATION: Pain COMPARISON: None available. TECHNIQUE: 3 views of the left hand and wrist FINDINGS: No acute visible fracture or dislocation. Mild multi joint arthritic changes. Joint spaces and alignment are otherwise maintained. Soft tissues are unremarkable. XR/XR hand wrist LT IMPRESSION: 1. No acute visible fracture or dislocation. 2. Mild multi joint arthritic changes. Assessment & Plan Assessment & Plan (1) Bilateral hand pain: Code(s): M79.641 - Pain in right hand; M79.642 - Pain in left hand (2) Parkinsons disease: Code(s): G20.A1 - Parkinson's disease without dyskinesia, without mention of fluctuations Qualifiers: Dyskinesia presence: with dyskinesia Fluctuating manifestations: unspecified whether manifestations fluctuate Qualified Code(s): G20.B1 - Parkinson's disease with dyskinesia, without mention of fluctuations Plan Recently diagnosed Parkinson's disease, following Dr. Martin. His tremors are much more evident than the last time I saw him. I suspect hand symptoms are partly from Parkinson's. I do not see any signs of triggering. I will send him for nerve conduction studies to rule out Carpal Tunnel Syndrome. Although low suspicion. I do not think further anti spasticity medication would help or are indicated. I do not see signs of dystonia or spasticity on exam today. He continues to be independent at home. is sick. We might need to monitor safety at home in the future. I offered to refer him for hand therapy which he defers. Assessment and plan discussed with patient, and patient was agreeable. All questions were answered thoroughly. Melanie Ferraro MD, LENY Board Certified, [place] [employer] and Rehabilitation (ABPMR) Board Certified, [place] [employer] Electro[employer]ostic [employer] (ABEM) Orders: Orders NE electromyogram (EMG) Today G20.A1 - Parkinson's disease without dyskinesia, without mention of fluctuations, M79.641 - Pain in right hand, M79.642 - Pain in left hand NE nerve conduction velocity Today G20.A1 - Parkinson's disease without dyskinesia, without mention of fluctuations, M79.641 - Pain in right hand, M79.642 - Pain in left hand Coding Level of Care Code Est Pt Level 3 (29588) Diagnoses Bilateral hand pain M79.641; M79.642 Parkinson's disease with dyskinesia, unspecified whether manifestations fluctuate G20.B1 Dyskinesia presence: with dyskinesia Fluctuating manifestations: unspecified whether manifestations fluctuate
[2023-10-07 10:17] VITALS: BMI 18.7
== END 2023-10-07 10:36 | disposition home or self-care (01) ==
LOC: HO.HOS 10:01
PROVIDERS: PCP Internal Medicine; Visit Provider Physical Medicine & Rehabilitation
DX: M79.641 Pain in right hand (principal); M79.642 Pain in left hand; G20.B1 Parkinson's disease with dyskinesia, without mention of fluctuations
CPT/HCPCS: 99213

== ENCOUNTER → 2023-10-07 10:01 | Outpatient (BNVA) | payer MEDICARE, SELFPAY | PROVIDERS: PCP Internal Medicine; Visit Provider Physical Medicine & Rehabilitation | DX: M79.641 Pain in right hand (principal); M79.642 Pain in left hand; G20.B1 Parkinson's disease with dyskinesia, without mention of fluctuations | CPT/HCPCS: 99212 ==

== ENCOUNTER 2023-10-15 08:44 | Outpatient (REF) | payer MEDICARE, SELFPAY ==
--- NOTE | 2023-10-15 08:47 | EMG_ITS ---
Bilateral median and ulnar motor and sensory studies were performed. Bilateral radial sensory studies were performed and paraspinal muscles were tested with a needle. He did not tolerate needle examination well. IMPRESSION: 1. [id number] bilateral median neuropathy across carpal tunnel. 2. Mild bilateral ulnar neuropathy across cubital tunnel. 3. Chronic left mid cervical radiculopathy. MD KATIE Nagel/CHRISTA / [phone]
== END 2023-10-15 08:45 | disposition home or self-care (01) ==
LOC: HO.NEURO 08:44
PROVIDERS: PCP Internal Medicine; Visit Provider Physical Medicine & Rehabilitation
DX: M79.641 Pain in right hand (principal); M79.642 Pain in left hand; G20.A1 Parkinson's disease without dyskinesia, without mention of fluctuations
CPT/HCPCS: 95886; 95911

== ENCOUNTER 2023-12-08 09:51 | Outpatient (AMB) | payer MEDICARE, SELFPAY ==
[2023-12-08 09:56] VITALS: BMI 18.7
--- NOTE | 2023-12-08 09:56 | A.OFFVIS_ITS ---
Intake Vital Signs 12/08/23 09:56 Height 5 ft 8 in Weight 123 lb BMI 18.7 Intake Visit Reasons: Newprob-Carpal tunnel syndrome, B/L Intake Note: Jl 77 yr old who is right hand dominant, male presents today for a new problem visit for his carpal tunnel syndrome in bilateral hands. States his left is worse than his right. Symptoms started many years ago and has worsen. Patient explains he has concerns due to his hands roni inward. He is able to make a fist however feels like his index finger is tilting sideways. EMG done with Dr. Nava. Hx of parkinsons. Allergies No Known Allergies [No Known Allergies*] Allergy (Verified 12/08/23 10:01) HPI Newprob-Carpal tunnel syndrome, B/L HPI Details Jl is a 78 year old right hand dominant man who presents for a NCS review a, L>R. His chief complaint today is of bilateral hand contractures. He is also concerned that his index finger is tilted when he makes a fist or grabs an object, like a glass. He says he often tries to stretch his fingers at home, and is able to make a fist. He complains his hands are cold constantly, and he is often wearing gloves. He denies any numbness in his hands He has Parkinson's disease and has a mild tremor in his hands. He says his is sick and periodically resides in long-term care at the hospital. He says she has some mental health issues, such as bi-polar disorder. 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 Review of Systems Const All systems reviewed & are unremarkable except as noted in HPI and below Physical Exam Vital Signs: BMI result Body Mass Index 18.7 Const General: cooperative, healthy appearing and no acute distress Orientation/consciousness: patient oriented x3 HEENT Head: Yes normocephalic and Yes atraumatic Eyes EOM: EOMs intact bilaterally Resp Effort & Inspection: normal respiratory effort and able to speak in complete sentences Cardio Jugular venous distension: no JVD Skin General skin exam: turgor normal Rashes: no rashes Neuro General: patient oriented x3 Extrem Other: Evaluation of Bilateral Upper Extremity: The patient is alert, oriented, and in no acute distress Neuro: Median, Ulnar, Radial nerves motor and sensory intact and sensation is normal to the tips of all digits No thenar or intrinsic wasting Good APB muscle belly firing and good finger cross Vascular: Cap refill brisk ROM: He can make a fist and extend all his digits He can place his and flat on the table No locking or catching No contractures, or Dupuytrens nodules seen He has a mild hand tremor bilaterally, related to his Parkinson's disease. Skin: No lacerations or abrasions. General: No Ecchymosis. No Erythema or evidence of infection. All in all, his hands appear to be in very good condition. Radiographs: 3 views of the bilateral hands from 08/05/23 were reviewed by me today in clinic. They show no fractures or dislocations. He has some mild arthritic changes, including early basal joint arthritis. Nerve Conduction Study: IMPRESSION: 1. Ifxm-[id number]-[id number] bilateral median neuropathy across carpal tunnel. 2. Mild bilateral ulnar neuropathy across cubital tunnel. 3. Chronic left mid cervical radiculopathy. Mayur Valencia MD 10/15/2023 Psych Appearance: grossly normal Affect: normal affect Attitude: cooperative Assessment & Plan Assessment & Plan (1) Carpal tunnel syndrome of right wrist: Code(s): G56.01 - Carpal tunnel syndrome, right upper limb (2) Carpal tunnel syndrome of left wrist: Code(s): G56.02 - Carpal tunnel syndrome, left upper limb (3) Cubital tunnel syndrome on right: Code(s): G56.21 - Lesion of ulnar nerve, right upper limb (4) Cubital tunnel syndrome on left: Code(s): G56.22 - Lesion of ulnar nerve, left upper limb (5) Parkinsons disease: Code(s): G20.A1 - Parkinson's disease without dyskinesia, without mention of fluctuations Qualifiers: Dyskinesia presence: with dyskinesia Fluctuating manifestations: unspecified whether manifestations fluctuate Qualified Code(s): G20.B1 - Parkinson's disease with dyskinesia, without mention of fluctuations (6) Cervical radiculopathy: Code(s): M54.12 - Radiculopathy, cervical region Plan Assessment & Plan: 1. Bilateral carpal tunnel syndrome, mild-moderate Seen on NCS Denies any numbness at this time 2. Bilateral cubital tunnel syndrome, mild-moderate Seen on NCS Denies any numbness at this time No intervention warranted at this time I educated him on the symptoms of worsening carpal tunnel & cubital tunnel syndrome If his symptoms worsen he will follow up to discuss treatment 3. Left mid cervical radiculopathy Chronic 4. Parkinson's Disease Follows with Dr. Martin for these issues Scribed for Malissa Moreno MD by Luis Valdovinos, biomedical engineering director, on 12/08/23 at 10:05 AM, EST. Coding Level of Care Code New Pt Level 3 (47306) Diagnoses Carpal tunnel syndrome of right wrist G56.01 Carpal tunnel syndrome of left wrist G56.02 Cubital tunnel syndrome on right G56.21 Cubital tunnel syndrome on left G56.22 Parkinson's disease with dyskinesia, unspecified whether manifestations fluctuate G20.B1 Dyskinesia presence: with dyskinesia Fluctuating manifestations: unspecified whether manifestations fluctuate Cervical radiculopathy M54.12
== END 2023-12-08 10:26 | disposition home or self-care (01) ==
PROVIDERS: PCP Internal Medicine; Visit Provider Orthopaedic Surgery
DX: G56.03 Carpal tunnel syndrome, bilateral upper limbs (principal); G56.23 Lesion of ulnar nerve, bilateral upper limbs; G20.B1 Parkinson's disease with dyskinesia, without mention of fluctuations; M54.12 Radiculopathy, cervical region
CPT/HCPCS: 99203

== ENCOUNTER → 2023-12-08 09:51 | Outpatient (BNVA) | payer MEDICARE, SELFPAY | PROVIDERS: PCP Internal Medicine; Visit Provider Orthopaedic Surgery | DX: G56.03 Carpal tunnel syndrome, bilateral upper limbs (principal); G56.23 Lesion of ulnar nerve, bilateral upper limbs; G20.B1 Parkinson's disease with dyskinesia, without mention of fluctuations; M54.12 Radiculopathy, cervical region | CPT/HCPCS: 99202 ==

== ENCOUNTER 2024-03-24 07:21 | Emergency (ER) | payer MEDICARE, SELFPAY ==
--- NOTE | ~2024-03-24 | US_ITS ---
EXAMINATION: US VENOUS WITH DOPPLER UPPER EXTREMITY, RIGHT CLINICAL INFORMATION: Pain. Evaluate for venous thrombosis. COMPARISON: None available. TECHNIQUE: Ultrasound of the upper extremity is performed using compression sonography and color and pulse Doppler flow with assessment of augmentation of flow. There is also imaging and Doppler assessment of the jugular and subclavian veins. Spectral analysis with color-flow imaging is performed. US/US venous duplex UE RT FINDINGS AND IMPRESSION: Normal exam. The grayscale and color Doppler images show normal right internal jugular, subclavian, axillary, brachial, basilic and cephalic veins. Within the forearm, the radial and ulnar veins are compressible. There is no evidence of either superficial or deep vein thrombosis.
[2024-03-24 07:40] VITALS: BP 185/88; PULSE 65; RESP 18; TEMP 36.6; O2SAT 96; BMI 19.1
--- NOTE | 2024-03-24 07:42 | ECG_ITS ---
Test Reason : R ARM PAIN Blood Pressure : / mmHG Vent. Rate : 051 BPM Atrial Rate : 044 BPM P-R Int : 000 ms QRS Dur : 090 ms QT Int : 426 ms P-R-T Axes : 000 000 034 degrees QTc Int : 392 ms Sinus bradycardia Premature atrial complexes Otherwise normal ECG When compared with ECG of 27-JUL-2023 12:17, No significant changes seen Referred By: Ubaldo Espinoza Electronically Signed By:CHITRA HEATH
--- NOTE | 2024-03-24 07:44 | ED_ITS ---
HPI - Extremity Problem General Chief complaint: Extremity Problem Stated complaint: R arm pain no inj Time Seen by Provider: 03/24/24 07:33 Source: patient and family Mode of arrival: ambulatory Limitations: no limitations History of Present Illness ED Provider: DR. Espinzoa HPI Narrative: 78-year-old male with history of Parkinson's came in today for evaluation of neck pain radiating to the right arm for the past 4 days, pain is excruciating described as 10/10 in the whole entire right arm, no deformity, no history of fall or injury of the right arm pain is not relieved my meloxicam, and Advil that was prescribed by PCP. Pain was described as shooting pain to the right arm with numbness at the tip of fingers pain is worse with moving the neck and had toward the right side or tried to lift up the right arm. No swelling, no history of DVT. Related Data Home Medications ?Medication ?Instructions ?Recorded ?Confirmed aspirin 81 mg tablet,delayed 81 mg PO DAILY 07/27/23 10/07/23 release atorvastatin 40 mg tablet 40 mg PO DAILY 07/27/23 10/07/23 carbidopa 25 mg-levodopa 100 mg 1 tab PO QID 07/27/23 10/07/23 tablet minocycline 50 mg capsule 50 mg PO DAILY 07/27/23 10/07/23 rasagiline 1 mg tablet 1 mg PO DAILY 07/27/23 10/07/23 sennosides 8.6 mg-docusate sodium 1 tab-cap PO BEDTIME 07/27/23 10/07/23 50 mg tablet (Senna Plus) Previous Rx's ?Medication ?Instructions ?Recorded tizanidine 2 mg tablet 2 mg PO Q8H PRN muscle spasticity 08/05/23 #60 tabs oxycodone 5 mg tablet 5 mg PO BID PRN pain #10 tabs 03/24/24 Allergies Allergy/AdvReac Type Severity Reaction Status Date / Time No Known Allergies Allergy Verified 03/24/24 07:47 [No Known Allergies*] Review of Systems 2 Review of Systems: All other systems are reviewed and are negative Constitutional: Reports as per HPI and Reports no additional constitutional complaints Eyes: Reports as per HPI and Reports no additional eye complaints Reports system reviewed and no additional complaints, except as documented Cardiovascular: Reports as per HPI and Reports no additional cardiovascular complaints Respiratory: Reports as per HPI and Reports no additional respiratory complaints Gastrointestinal: Reports as per HPI and Reports no additional gastrointestinal complaints Genitourinary: Reports no additional female genitourinary complaints Musculoskeletal: Reports no additional musculoskeletal complaints Skin/Breast: Reports system reviewed and no additional complaints, except as docu Psychiatric: Reports no additional psychiatric complaints Endocrine: Reports no additional endocrine complaints Hematologic/Lymphatic: Reports no additional hematologic/lymphatic complaints Allergic/Immunologic: Reports no additional allergic/immunologic complaints Reports system reviewed and no additional complaints, except as documented and Reports Abnormal speech present [facility] Past Medical History Medical History Parkinsons disease Social History Social History Patient Tobacco Use Status: Former Tobacco user Advance Directives: No Do you have a plan to hurt others: No Plan service: No Current occupational status: retired 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 Blood pressure elevated. Heart rate normal. Respiratory rate normal. Temperature normal. Oxygen saturation normal. Appearance: Alert. Oriented X3. No acute distress. Head: Normal external exam. Normocephalic. Atraumatic. No Hoffman signs noted. No raccoon eyes noted Eyes: PERRLA. EOMI. Conjunctiva and sclera normal. Eyelids normal. ENT: TM's Normal. Pharynx normal. Uvula midline. Moist mucous membranes. No trismus noted. No drooling noted. No muffled voice noted. Neck: Normal inspection. Neck supple. FROM. No adenopathy. Thyroid Normal. No meningeal signs. No neck mass noted. CVS: Normal heart rate and rhythm. Heart sound normal. No murmurs noted. Pulses normal throughout. Respiratory: No respiratory distress. Painless inspiration. Breath sounds normal. No wheezes/rales/rhonchi noted. Chest nontender. No accessory muscle usage noted or decreased air movement noted. Abdomen: Soft and nontender. Bowel sounds normal in all 4 quadrants. No distention noted. No organomegaly noted. No visible injury noted. Back: No CVA tenderness. Full range of motion noted. Skin: Skin warm and dry. Normal skin color. Normal skin turgor. No rashes/lesions/lacerations noted. Extremities: No lower extremity edema. Right upper extremity, neurovascularly intact patent right radial artery with cap refill with 2 seconds, sensation is intact to light touch and pinprick. Neuro: Oriented X 3. Cranial nerve exam: II-XII are grossly intact No motor deficit. No sensory deficit. Reflexes normal. Course Reevaluation(s) Reevaluation #1: Patient feels better after was given oxycodone with ibuprofen, patien's symptoms is related to right cervical radiculopathy. Will discharge the patient on oxycodone and follow-up with PCP. Time: 10:16 Medications Administered Discontinued Medications Generic Name Dose Route Start Last Admin Trade Name Freq PRN Reason Stop Dose Admin Ibuprofen 600 mg 03/24/24 07:42 03/24/24 07:54 Ibuprofen 600 Mg Tablet PO 03/24/24 07:43 600 mg ONCE ONE Administration Oxycodone HCl 5 mg 03/24/24 07:42 03/24/24 07:54 Oxycodone Hcl Immed Release 5 Mg Tablet PO 03/24/24 07:43 5 mg ONCE ONE Administration Medical Decision Making Differential Diagnosis Differential Diagnoses: The differential diagnosis associated with the presentation includes (DVT of right upper extremity, cervical radiculopathy, fracture, upper extremity contusion, rhabdomyolysis of the upper extremity, ACS.) Admission/Observation Consideration of admission/observation: Escalation of care including admission/observation considered Lab Data MDM Lab Attestation statement: I reviewed the patient's lab results. 03/24/24 08:51 03/24/24 08:51 Labs: Lab Results 03/24/24 Range/Units 08:51 WBC 9.0 (4.8-10.8) X10*3/uL RBC 4.86 (4.60-5.80) X10*6/uL Hgb 14.8 (14.0-18.0) g/dl Hct 44.7 (42.0-52.0) % MCV 92.0 (80.0-98.0) fL MCH 30.5 (27.0-33.0) pg MCHC 33.1 (31.0-36.0) g/dl RDW 14.3 (11.0-16.0) % Plt Count 207 (160-400) X10*3/uL MPV 11.7 (9.4-12.4) fL Immature Gran % (Auto) 0.1 (0.0-0.4) % Neut % (Auto) 73.8 H (45-73) % Lymph % (Auto) 13.9 L (20-40) % [place] % (Auto) 10.1 (2-11) % Eos % (Auto) 1.7 (0-4) % Baso % (Auto) 0.4 (0-2) % Lymph # (Auto) 1.3 (1.2-4.9) X10*3/uL [place] # (Auto) 0.9 (0.1-1.2) X10*3/uL Eos # (Auto) 0.2 (0.0-0.4) X10*3/uL Baso # (Auto) 0.0 (0.0-0.2) X10*3/uL Abs Immat Gran (auto) 0.01 (0.00-0.03) X10*3/uL Absolute Neuts (auto) 6.6 (2.0-8.3) x10*3/uL Absolute Nucleated RBC 0.000 (0.0-0.012) X10*3/uL Nucleated RBC % (auto) 0.0 (0.0-0.2) /100WBC Sodium 142 (135-145) mmol/L Potassium 4.4 (3.3-5.1) mmol/L Chloride 105 (96-108) mmol/L Carbon Dioxide 28 (22-29) mmol/L Anion Gap 13 (12-20) BUN 24 H (9-16) mg/dL Creatinine 0.82 (0.5-1.4) mg/dL Estim Creat Clear Calc 59.7 Estimated GFR > 60 Random Glucose 99 (60-115) mg/dL Calcium 9.3 (8.4-10.2) mg/dL Total Bilirubin 0.5 (0.0-1.0) mg/dL Direct Bilirubin 0.2 (0.0-0.5) mg/dL AST 24 (5-37) U/L ALT 23 (0-40) U/L Alkaline Phosphatase 57 (39-117) U/L Total Creatine Kinase 123 (38-174) U/L Troponin I High Sens 3.1 (<3.5-35.0) ng/L Total Protein 6.8 (6.5-8.0) g/dL Albumin 4.2 (3.5-5.0) g/dL Lipase 21 (8-78) U/L Independent Interpretation I performed an independent interpretation of an: Ultrasound (Right upper extremity: No acute DVT.) Radiology Impression Discussion of test interpretation with radiology: I have reviewed the radiologist's reading. Discharge Plan Discharge Clinical Impression: Cervical radiculopathy Patient Disposition: Home, Self-Care Instructions: Cervical Radiculopathy (ED) Prescriptions: New oxycodone 5 mg tablet 5 mg PO BID PRN (Reason: pain) Qty: 10 0RF Rx Instructions: Partial Fill upon patient request. No Action atorvastatin 40 mg Tablet 40 mg PO DAILY minocycline 50 mg capsule 50 mg PO DAILY carbidopa-levodopa 25-100 mg Tablet 1 tab PO QID rasagiline 1 mg tablet 1 mg PO DAILY sennosides-docusate sodium [Senna Plus] 8.6-50 mg Tablet 1 tab-cap PO BEDTIME aspirin 81 mg Tablet,Delayed Release (Dr/Ec) 81 mg PO DAILY tizanidine 2 mg tablet 2 mg PO Q8H PRN (Reason: muscle spasticity) Qty: 60 0RF Rx Instructions: Start with 2 mg once a day for 2 weeks. Watch out for lightheadedness or dizziness. May increase to twice a day after 2 weeks if tolerating Referrals: Earlene Recio MD [Primary Care Provider] - Print Language: Tamazight
[2024-03-24] MEDS: oxyCODONE HCl Immed Release 5 MG TABLET PO (07:54)
[2024-03-24] MEDS: Ibuprofen 600 MG TABLET PO (07:54)
[2024-03-24 08:32] VITALS: BP 175/93; PULSE 52; RESP 18; O2SAT 100
[2024-03-24 08:58] LABS: Basophils Percent Auto 0.4 % (0-2); Eosinophils Absolute Auto 0.2 X10*3/uL (0.0-0.4); Eosinophils Percent Auto 1.7 % (0-4); Hematocrit 44.7 % (42.0-52.0); Hemoglobin 14.8 g/dl (14.0-18.0); Imm Gran Abs Auto 0.01 X10*3/uL (0.00-0.03); Imm Gran Pct Auto 0.1 % (0.0-0.4); Lymphocytes Absolute Auto 1.3 X10*3/uL (1.2-4.9); Lymphocytes Percent Auto 13.9 % (20-40); MANUAL DIFF FLAG NO; Mean Corpuscular HGB Conc 33.1 g/dl (31.0-36.0); Mean Corpuscular Hemoglobin 30.5 pg (27.0-33.0); Mean Platelet Volume 11.7 fL (9.4-12.4); Monocytes Absolute Auto 0.9 X10*3/uL (0.1-1.2); Monocytes Percent Auto 10.1 % (2-11); Neutrophils Absolute Auto 6.6 x10*3/uL (2.0-8.3); Neutrophils Percent Auto 73.8 % (45-73); Platelet Count 207 X10*3/uL (160-400); Red Blood Count 4.86 X10*6/uL (4.60-5.80); Red Cell Distribution Width 14.3 % (11.0-16.0)
[2024-03-24 09:12] LABS: Alanine Aminotransferase 23 U/L (0-40); Albumin Level 4.2 g/dL (3.5-5.0); Alkaline Phosphatase 57 U/L (39-117); Anion Gap 13 (12-20); Aspartate Amino Transferase 24 U/L (5-37); Bilirubin Direct 0.2 mg/dL (0.0-0.5); Bilirubin Total 0.5 mg/dL (0.0-1.0); Blood Urea Nitrogen 24 mg/dL (9-16); Calcium 9.3 mg/dL (8.4-10.2); Carbon Dioxide 28 mmol/L (22-29); Chloride 105 mmol/L (96-108); Creatinine Clr Calc Pharmacy 59.7; Estimated Glomerular Filt Rate > 60; Glucose Random 99 mg/dL (60-115); Lipase 21 U/L (8-78); Potassium 4.4 mmol/L (3.3-5.1); Sodium 142 mmol/L (135-145); Total Protein 6.8 g/dL (6.5-8.0)
[2024-03-24 09:19] LABS: Troponin-I High Sensitivity 3.1 ng/L (<3.5-35.0)
[2024-03-24 10:21] VITALS: BP 173/91; PULSE 62; RESP 18; TEMP 36.7; O2SAT 99
[2024-03-24 10:28] VITALS: BP 173/91; PULSE 62; RESP 18; TEMP 36.7; O2SAT 99
== END 2024-03-24 10:29 | disposition home or self-care (01) ==
PROVIDERS: Emergency Provider Emergency Medicine; PCP Internal Medicine
DX: M54.12 Radiculopathy, cervical region (principal); M50.03 Cervical disc disorder with myelopathy, cervicothoracic region; R00.1 Bradycardia, unspecified; M48.03 Spinal stenosis, cervicothoracic region; R60.0 Localized edema; M79.601 Pain in right arm; Z79.899 Other long term (current) drug therapy
CPT/HCPCS: 36415; 80048; 80076; 82550; 83690; 84484; 85025; 93005; 93971; 99284

== ENCOUNTER → 2024-03-24 07:42 | Outpatient (BNV) | payer MEDICARE, SELFPAY | PROVIDERS: Emergency Provider Emergency Medicine; PCP Internal Medicine; Visit Provider Internal Medicine | DX: R00.1 Bradycardia, unspecified (principal) | CPT/HCPCS: 93010 ==

== ENCOUNTER 2025-01-22 11:05 | Emergency (ER) | payer MEDICARE, SELFPAY ==
--- NOTE | ~2025-01-22 | XR_ITS ---
CLINICAL HISTORY: fall, pain 3 view right shoulder Comparison: None Findings: Bones intact. No dislocations. Degenerative osteophytes of the AC joint. No erosions. No radiopaque foreign body. IMPRESSION: 1. No acute findings This document has been electronically signed by: Les Kenney MD on 01/22/2025 13:44:28
--- NOTE | 2025-01-22 11:33 | ED.GENADULT ---
HPI - General Adult General Chief complaint: Fall Stated complaint: shoulder inj Time Seen by Provider: 01/22/25 13:24 Source: patient, RN notes reviewed and old records reviewed Mode of arrival: ambulatory History of Present Illness ED Provider: Karine Stearns PA-C HPI narrative: 79-year-old male with a past medical history of Parkinson's disease, on ASA, presenting to the ED complaining of right shoulder pain s/p mechanical trip and fall in yard over bushes 3 days ago. States foot got tangled, denies symptoms prior to fall including lightheadedness/dizziness, CP/SOB. Denies head strike, LOC, neck/back pain, numbness, tingling, weakness Related Data Home Medications ?Medication ?Instructions ?Recorded ?Confirmed aspirin 81 mg tablet,delayed 81 mg PO DAILY 07/27/23 10/07/23 release atorvastatin 40 mg tablet 40 mg PO DAILY 07/27/23 10/07/23 carbidopa 25 mg-levodopa 100 mg 1 tab PO QID 07/27/23 10/07/23 tablet minocycline 50 mg capsule 50 mg PO DAILY 07/27/23 10/07/23 rasagiline 1 mg tablet 1 mg PO DAILY 07/27/23 10/07/23 sennosides 8.6 mg-docusate sodium 1 tab-cap PO BEDTIME 07/27/23 10/07/23 50 mg tablet (Senna Plus) Previous Rx's ?Medication ?Instructions ?Recorded tizanidine 2 mg tablet 2 mg PO Q8H PRN muscle spasticity 08/05/23 #60 tabs oxycodone 5 mg tablet 5 mg PO BID PRN pain #10 tabs 03/24/24 acetaminophen 500 mg tablet 500 mg PO Q6H PRN fever or pain 01/22/25 (Tylenol Extra Strength) #14 tabs lidocaine 5 % topical patch 1 patch topical DAILY PRN pain #30 01/22/25 (Lidoderm) ea Allergies Allergy/AdvReac Type Severity Reaction Status Date / Time No Known Allergies Allergy Verified 01/22/25 11:39 [No Known Allergies*] Review of Systems Review of Systems: Yes all other systems are reviewed and are negative Constitutional: Constitutional: Reports as per HPI Neurologic: Denies Abnormal speech present PMFSH Past Medical History Attestation statement: The following information was validated with the patient. 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 Physical Exam ED Vital Signs: Vital Signs - 24 hr 01/22/25 11:35 01/22/25 13:34 01/22/25 15:17 Temperature 97.5 F 97.8 F Pulse Rate 112 H 58 106 H Respiratory Rate 16 17 26 H Blood Pressure 137/63 177/68 H 102/63 Pulse Oximetry 98 100 100 Oxygen Delivery Method Room Air Room Air Room Air 01/22/25 15:26 01/22/25 15:42 Temperature 98 F Pulse Rate 62 62 Respiratory Rate 16 16 Blood Pressure 169/105 H 169/105 H Pulse Oximetry 100 100 Oxygen Delivery Method Room Air Room Air BMI result Body Mass Index 19.9 Const General: cooperative, healthy appearing, no acute distress, alert and awake Orientation/consciousness: patient oriented x3 Limitations: no limitations HENMT Head: Yes normal to inspection, Yes atraumatic, No Hoffman's sign and No raccoon eyes Ears: hearing grossly normal bilaterally General nose exam: Normal external nose present Face and sinus: Yes normal facial exam Throat: Yes posterior oropharynx normal and Yes uvula midline Eyes General: appearance normal, both eyes and all related structures Pupils: Equal, round and reactive pupils present EOM: EOMs intact bilaterally Neck Neck: Yes normal visual inspection and Yes no meningeal signs Resp Effort & Inspection: normal respiratory effort and no respiratory distress Cardio Rate: regular rate GI Inspection: Yes normal to inspection Palpation (GI): Soft to palpation, nontender, no guarding and not rigid Back/Spine/Pelvis Other: No midline cervical/thoracic/lumbar spinous tenderness/step-off or deformity Skin Rashes: no rashes Wounds: no wounds Neuro General: patient oriented x3, gait normal, tone normal, moves all extremities, no meningeal signs, no focal motor deficits and CN's II-XI intact bilaterally Cranial nerves: Yes CN's II-XII intact bilaterally and Yes Equal, round and reactive pupils present Cognition (Neuro): normal cognition Speech: No Abnormal speech present Gait exam (Neuro): Normal gait present Motor exam (neuro): 5/5 motor strength present throughout Extrem Other: Right shoulder with mild swelling and healing ecchymosis. Diffusely tender to palpation. Limited ROM secondary to pain. Neurovascularly intact distally. Elbow, forearm, wrist and hand nontender Course Course Course Narrative: This is an RME performed by Carlos Love CNP: Additional HPI, ROS, PE not included below will be deferred to primary provider. Patient is a 79-year-old male who presents emergency department for evaluation. Reports 3 days ago slowing, he and tripped over a stump subsequently landing onto his right side with injury to the right shoulder. Denies head strike or loss of consciousness. Uses a low-dose aspirin daily. Continues to have persistent pain to the right shoulder Plan: XR XR shoulder RT min 2V IMPRESSION: 1. No acute findings Results discussed with patient including worrisome signs and symptoms and strict return precautions, and when to return to the emergency department. They verbalized understanding and feel safe for discharge at this time. Medications Administered Discontinued Medications Generic Name Dose Route Start Last Admin Trade Name Debbie PRN Reason Stop Dose Admin Acetaminophen 650 mg 01/22/25 14:59 01/22/25 15:30 Acetaminophen 325 Mg Tablet PO 01/22/25 15:00 650 mg ONCE ONE Administration Lidocaine 1 patch 01/22/25 15:17 01/22/25 15:29 Lidocaine 4 % Patch Adh..Patch TRANSDERMA 01/22/25 15:18 1 patch ONCE ONE Administration Protocol Oxycodone HCl 5 mg 01/22/25 14:59 01/22/25 15:29 Oxycodone Hcl Immed Release 5 Mg Tablet PO 01/22/25 15:00 5 mg ONCE ONE Administration Medical Decision Making Medical Decision Making MDM Narrative: 79-year-old male with a past medical history of Parkinson's disease, on ASA, presenting to the ED complaining of right shoulder pain s/p mechanical trip and fall in yard over bushes 3 days ago. On exam vital signs stable, NAD, nontoxic appearing, physical exam as noted above. Concern for fracture vs contusion vs sprain. Lower suspicion for dislocation. No evidence of septic joint/arthritis. Unlikely DVT Plan: X-rays, pain control Please refer to course for remaining clinical decision making, interpretation of labs/imaging results, and discussions with consultants and/or family members. Differential Diagnosis Differential Diagnoses: The differential diagnosis associated with the presentation includes As above Independent Interpretation I performed an independent interpretation of an: Plain X-Ray Radiology Impression Discussion of test interpretation with radiology: I have reviewed the radiologist's reading. External Record Review External record reviewed: Inpatient record, Office record, Outpatient record, Prior outpatient labs, Prior outpatient radiology, Primary care record and Outside ED record Tests considered The following testing was considered but not selected: As above Prescription Management I considered prescription management with: Pain Medication Chronic Conditions Patient?s care impacted by: Other (Parkinson's) Social Determinants Patient?s care significantly limited by Social Determinants of Health including: Other Social Determinant of Health Discharge Plan Discharge Clinical Impression: Contusion of right shoulder, Fall Patient Disposition: Home, Self-Care Instructions: Fall Prevention for Older Adults (ED), Contusion in Adults (ED) Additional Instructions: Your x-ray does not show a fracture. You may need an outpatient MRI for further evaluation of soft tissues Ice your shoulder Take Tylenol for pain In addition Lidoderm patches are numbing patches, apply to painful area Please have close follow up with your primary care doctor Continue to move your shoulder gently as well as your elbow, wrist, and hand or you will be at risk of developing frozen shoulder If your pain persists or worsens/becomes unbearable, area turns red/warm or you have fever or you have recurrent falls return to the ED immediately Prescriptions: New lidocaine [Lidoderm] 5 % adhesive patch,medicated 1 patch topical DAILY MDD remove after 12 hours PRN (Reason: pain) Qty: 30 0RF Rx Instructions: leave on most painful area for up to 12 hrs acetaminophen [Tylenol Extra Strength] 500 mg tablet 500 mg PO Q6H PRN (Reason: fever or pain) Qty: 14 0RF No Action atorvastatin 40 mg Tablet 40 mg PO DAILY minocycline 50 mg capsule 50 mg PO DAILY carbidopa-levodopa 25-100 mg Tablet 1 tab PO QID rasagiline 1 mg tablet 1 mg PO DAILY sennosides-docusate sodium [Senna Plus] 8.6-50 mg Tablet 1 tab-cap PO BEDTIME aspirin 81 mg Tablet,Delayed Release (Dr/Ec) 81 mg PO DAILY oxycodone 5 mg tablet 5 mg PO BID PRN (Reason: pain) Qty: 10 0RF Rx Instructions: Partial Fill upon patient request. tizanidine 2 mg tablet 2 mg PO Q8H PRN (Reason: muscle spasticity) Qty: 60 0RF Rx Instructions: Start with 2 mg once a day for 2 weeks. Watch out for lightheadedness or dizziness. May increase to twice a day after 2 weeks if tolerating Referrals: [facility] [place] [facility] [Provider Group] - 1 week Earlene Recio MD [Primary Care Provider] - 5 days Interventions: ED Discharge Assessment Last Done: 01/22/25 15:42 Discharge Date/Time: 01/22/25 15:44 Print Language: Greek
[2025-01-22 11:35] VITALS: BP 137/63; PULSE 112; RESP 16; TEMP 36.4; O2SAT 98; BMI 19.9
[2025-01-22 13:34] VITALS: BP 177/68; PULSE 58; RESP 17; TEMP 36.6; O2SAT 100
[2025-01-22 15:17] VITALS: BP 102/63; PULSE 106; RESP 26; O2SAT 100
[2025-01-22 15:26] VITALS: BP 169/105; PULSE 62; RESP 16; O2SAT 100
[2025-01-22] MEDS: oxyCODONE HCl Immed Release 5 MG TABLET PO (15:29)
[2025-01-22] MEDS: Lidocaine 4 % Patch ADH..PATCH 1 PATCH TRANSDERMA (15:29)
[2025-01-22] MEDS: Acetaminophen 325 MG TABLET 650 MG PO (15:30)
[2025-01-22 15:42] VITALS: BP 169/105; PULSE 62; RESP 16; TEMP 36.6; O2SAT 100
== END 2025-01-22 15:44 | disposition home or self-care (01) ==
PROVIDERS: Emergency Provider Emergency Medicine; PCP Internal Medicine
DX: S49.91XA Unspecified injury of right shoulder and upper arm, initial encounter (principal); M25.511 Pain in right shoulder; W18.09XA Striking against other object with subsequent fall, initial encounter; X58.XXXA Exposure to other specified factors, initial encounter; Y93.9 Activity, unspecified; Y92.9 Unspecified place or not applicable; Y99.8 Other external cause status; Z79.899 Other long term (current) drug therapy; Z87.891 Personal history of nicotine dependence
CPT/HCPCS: 73030; 99283; 99284

== ENCOUNTER → 2025-01-22 11:35 | Outpatient (BNV) | payer MEDICARE, SELFPAY | PROVIDERS: Emergency Provider Emergency Medicine; PCP Internal Medicine; Visit Provider Nuclear Medicine | DX: M25.711 Osteophyte, right shoulder (principal) | CPT/HCPCS: 73030 ==

== ENCOUNTER 2025-02-17 11:40 | Outpatient (AMB) | payer MEDICARE, SELFPAY ==
--- OUTSIDE RECORDS SUMMARY | 2024-09-07 09:00 | XMS_ITS ---
Author Organization [facility] Address [address] [address] Care Team Providers Care Abstract Clerk Name Role Phone Kelsy Robins Primary Care Provider Unavailabl ROMELIA Warren Unavailable [phone] REASON FOR VISIT Lt foot corn below pinky toe Encounters Encounter Location Date Provider Diagnosis [facility] [address] [address] 09/07/2024 ROMELIA WILCOX Plan Of Treatment No Information Progress Notes * Jl VYASDOB:1945 ([age] yo M)Acc No.[id number]:09/07/2024 Patient: Jl MOHAN Provider: Ricardo Wilcox DPM :1945 A ge:78 Y S ex:Male Date:09/07/2024 Phone: Address:[address] [place], [place] [phone] Pcp:Kelsy Robins Subjective: * Chief Complaints: * 1 . Lt foot corn below pinky toe. * Medical History: Objective: * Vitals: Assessment: Plan: * Treatment: * Billing Information: * Visit Code: * Procedure Codes: * Electronic signature of ELICEO WILCOX D.P.M on 02/17/2025 at 12:04 PM EDT Sign off status: Pending * Provider: Ricardo Wilcox DPM Date: 09/07/2024 Generated for Quinten charles/Rupali/eTparamjitsmitting on: 0 02/17/2025 12:04 PM EDT
--- NOTE | 2025-02-17 11:45 | A.OFFVIS_ITS ---
Intake Visit Reasons: ED-F/U Contusion of RT shoulder, Fall DOI 01/20/25 Intake Note: Jl is a 79 year old right hand dominant male who presents today for an emergency department follow up for his right shoulder injury s/p mechanical trip and fall over bushes DOI: 01/19/25. Patient reports he is having limited ROM. He states that his pain is a 5/10 on the pain scale. He has taken tylenol 500mg with mild relief. He states that his pain is anterior and posterior of the shoulder. IMPRESSION: 1. No acute findings Allergies No Known Allergies (No Known Allergies*) Allergy (Verified 02/17/25 11:48) HPI HPI ED-F/U Contusion of RT shoulder, Fall DOI 01/20/25: Details: 89-year-old gentleman presents to the office today for an injury he sustained to his right shoulder on 01/20/2025. He states he was outside doing yd work when he tripped and fell into some bushes. He states he has some back pain and shoulder pain after the fall. He was seen in the ED, xrays obtained and he was referred to our office for ortho eval. 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 Full ROM in all planes. 5/5 RTC strength. NVI Results Reviewed Results Reviewed: XR right shoulder IMPRESSION: 1. No acute findings Assessment & Plan Assessment & Plan (1) Right shoulder tendonitis: Code(s): M77.8 - Other enthesopathies, not elsewhere classified Category: Medical Plan: We discussed options which includes conservative measures with physical therapy, modification of activity and anti-inflammatories. He declined physical therapy at this time. He states he is active at home and has a lot going on so he does not have time for physical therapy. I did send him a prescription for Celebrex to the pharmacy. If symptoms persist or they worsen over the next 3 months he can contact our office for an injection otherwise follow up as needed. Medications: New celecoxib (Celebrex) 200 mg PO BID 60 caps 3RF 30 days Coding Level of Care Code New Pt Level 3 (48833) Complex EM visit Add On G2211 Diagnoses Right shoulder tendonitis M77.8
== END 2025-02-17 16:05 | disposition home or self-care (01) ==
LOC: HO.HOS 11:41
PROVIDERS: PCP Internal Medicine; Visit Provider Physician Assistant
DX: M77.8 Other enthesopathies, not elsewhere classified (principal)
CPT/HCPCS: 99213; G2211

== ENCOUNTER → 2025-02-17 11:40 | Outpatient (BNVA) | payer MEDICARE, SELFPAY | PROVIDERS: PCP Internal Medicine; Visit Provider Physician Assistant | DX: M77.8 Other enthesopathies, not elsewhere classified (principal) | CPT/HCPCS: 99212 ==

== ENCOUNTER 2025-04-26 09:22 | Outpatient (AMB) | payer MEDICARE, SELFPAY ==
--- OUTSIDE RECORDS SUMMARY | 2024-08-19 06:30 | XMS_ITS ---
Author Organization [facility] Address [address] [address] Care Team Providers Care Child Care Leader Name Role Phone Kelsy Robins Primary Care Provider Unavailabl ROMELIA Warren Unavailable [phone] REASON FOR VISIT Lt foot corn below pinky toe Encounters Encounter Location Date Provider Diagnosis [facility] [address] [address] 08/19/2024 ROMELIA WILCOX Plan Of Treatment No Information Progress Notes * Jl VYASDOB:1945 ([age] yo M)Acc No.[id number]:08/19/2024 Patient: Jl MOHAN Provider: Ricardo Wilcox DPM :1945 A ge:78 Y S ex:Male Date:08/19/2024 Phone: Address:[address] [place], [place] [address] [id number] Pcp:Kelsy Robins Subjective: * Chief Complaints: * 1 . Lt foot corn below pinky toe. * Medical History: Objective: * Vitals: Assessment: Plan: * Treatment: * Billing Information: * Visit Code: * Procedure Codes: * Electronic signature of ELICEO WLICOX D.P.M on 04/26/2025 at 09:56 AM EDT Sign off status: Pending * Provider: Ricardo Wilcox DPM Date: 10/20/2023 Generated for Quinten charles/Rupali/eTparamjitsmitting on: 0 04/26/2025 09:56 AM EDT
--- OUTSIDE RECORDS SUMMARY | 2024-09-07 09:00 | XMS_ITS ---
Author Organization [facility] Address [address] [address] Care Team Providers Care House Shorer Name Role Phone Kelsy Robins Primary Care Provider Unavailabl ROMELIA Warren Unavailable [phone] REASON FOR VISIT Lt foot corn below pinky toe Encounters Encounter Location Date Provider Diagnosis [facility] [address] [address] 09/07/2024 ROMELIA WILCOX Plan Of Treatment No Information Progress Notes * lJ VYASDOB:1945 ([age] yo M)Acc No.[id number]:09/07/2024 Patient: Jl MOHAN Provider: Ricardo Wilcox DPM :1945 A ge:78 Y S ex:Male Date:09/07/2024 Phone: Address:[address] [place], [place] [address] [id number] Pcp:Kelys Robins Subjective: * Chief Complaints: * 1 . Lt foot corn below pinky toe. * Medical History: Objective: * Vitals: Assessment: Plan: * Treatment: * Billing Information: * Visit Code: * Procedure Codes: * Electronic signature of ELICEO WILCOX D.P.M on 04/26/2025 at 09:55 AM EDT Sign off status: Pending * Provider: Ricardo Wilcox DPM Date: 0 09/07/2024 Generated for Quinten charles/Rupali/eTpranavitting on: 0 04/26/2025 09:55 AM EDT
--- NOTE | 2025-04-26 09:32 | A.OFFVIS_ITS ---
Intake Visit Reasons: OV- Right shoulder tendonitis Intake Note: Jl is a 79 year old right hand dominant male who presents today for a follow up for his right shoulder injury s/p mechanical trip and fall over bushes DOI: 01/19/25. At his last visit he was suggested physical therapy, patient declined. A prescription for Celebrex was sent to the pharmacy. Patient reports ongoing pain that has gotten worse. States having hot sharp stabbing pain with ROM. He continues to use celebrex twice a day. Allergies No Known Allergies (No Known Allergies*) Allergy (Verified 04/26/25 09:41) Medication List - Last Reconciled 04/26/25 by Brooks Johnson PA-C acetaminophen (Tylenol Extra Strength) 500 mg PO Q6H PRN aspirin 81 mg PO DAILY atorvastatin 40 mg PO DAILY carbidopa-levodopa 25-100 mg 1 tab PO QID 90 days celecoxib (Celebrex) 200 mg PO BID 30 days minocycline 50 mg PO DAILY oxycodone 5 mg PO BID PRN rasagiline 1 mg PO DAILY sennosides-docusate sodium 8.6-50 mg (Senna Plus) 1 tab-cap PO BEDTIME tizanidine 2 mg PO Q8H PRN HPI HPI OV- Right shoulder tendonitis: Details: 70-year-old gentleman returns to the office today for follow-up right shoulder pain an injury he sustained from fall in his yd. He has been trying to progress with his activities but continues to have a stabbing/achy type pain in the right shoulder along the deltoid region. This is limiting his ability to perform activities. 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 Full ROM in all planes. Positive Ahmadi. 5/5 RTC strength. NVI Office Procedures AMB Joint Injection/Aspiration Joint Injection/Aspiration Primary Site: right shoulder Prep: site was prepped using aseptic technique, ethochloride spray was applied and injection warnings given Injected: 40 mg of, with 3 mL of, 1% plain lidocaine, 0.25% bupivacaine, in the subcromial space and decadron Approach Used: posterolateral Procedure: The patient tolerated the procedure well and there was some relief with the local anesthesia Coding 25100 - Glenohumeral/Tronchanteric Bursa/Intraarticular Procedure code (CPT) selection complete Assessment & Plan Assessment & Plan (1) Right shoulder tendonitis: Code(s): M77.8 - Other enthesopathies, not elsewhere classified Category: Medical Plan: We discussed options today which include steroid injection to help relieve his symptoms. Patient did consent to right shoulder injection which she tolerated well. He will continue with activities as tolerated and if symptoms arise or persist he will contact our office otherwise follow up as needed. Coding Level of Care Code Est Pt Level 3 (29672) Complex EM visit Add On G2211 Diagnoses Right shoulder tendonitis M77.8 CPT Codes Coding - Joint 7: 26416 - Glenohumeral/Tronchanteric Bursa/Intraarticular ([id number])
--- OUTSIDE RECORDS SUMMARY | 2025-04-26 09:56 | XMS_ITS ---
Author Name [facility] Organization Unknown Encounters Encounter Type Encounter Reason Primary Diagnosis Location Date Ambulatory [facility] 06/10/2024 Care Team Organization Name Specialty Phone Email Start Date End Da te [facility] ACO 04/19/2025 [facility] [address] [facility] Earlene Recio Primary Care 07/08/2022
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
--- OUTSIDE RECORDS SUMMARY | 2025-04-26 09:56 | XMS_ITS | Clinical Summary ---
Author Organization [facility] Address [address] [place] [address] Care Team Providers Care Insurance Service Representative Name Role Phone Kelsy Robins MD Primary Care Provider [phone] Allergies No known active allergies Medications Medication Sig Dispensed Refills Start Date End Date Status carbidopa-levodopa (SINEMET) 25-100 MG per tablet Take by mouth 3 (three) times a day. 0 Active atorvastatin (LIPITOR) tablet 40 mg Take 40 mg by mouth daily. 0 Active aspirin 81 MG chewable tablet Chew 81 mg by mouth daily. 0 Active docusate sodium (COLACE) 100 MG capsule Take 100 mg by mouth 2 (two) times a day. 0 Active polyethylene glycol (MIRALAX) 17 g packet Take 17 g by mouth daily. 0 Active Diclofenac Sodium 1 % GEL Apply 1 g of gel topically 4 (four) times a day as needed (pain). 350 g 0 05/02/2021 Active acetaminophen (TYLENOL EXTRA STRENGTH) 500 MG tablet Take 1 tablet (500 mg total) by mouth every 6 (six) hours as needed. 120 tablet 0 04/02/2022 Active meloxicam (MOBIC) 15 MG tablet TAKE 1 TABLET BY MOUTH EVERY DAY NEEDED FOR PAIN 30 tablet 0 02/19/2024 Active Social History Tobacco Use Types Packs/Day Years Used Date Smoking Tobacco: Former Smokeless Tobacco: Never Alcohol Use Standard Drinks/Week Comments Yes 0 (1 standard drink = 0.6 oz pur e alcohol) vacation Sex and Gender Information Value Date Recorded Sex Assigned at Not on file Gender Identity Not on file Sexual Orientation Not on file Last Filed Vital Signs Vital Sign Reading Time Taken Comments Blood Pressure 162/98 06/17/2022 11:39 AM EDT Pulse 76 06/17/2022 11:39 AM EDT Temperature 37.1 C (98.8 F) 06/17/2022 11:39 AM EDT Respiratory Rate - - Oxygen Saturation 99% 06/17/2022 11:39 AM EDT Inhaled Oxygen Concentration - - Weight 62.6 kg (138 lb) 04/24/2021 11:16 AM EDT Height 175.3 cm (5' 9 ) 04/24/2021 11:16 AM EDT Body Mass Index 20.38 04/24/2021 11:16 AM EDT Plan of Treatment Health Maintenance Due Date Last Done Comments Hepatitis C Screening 1945 COVID-19 Vaccine (#1) 06/02/1946 Depression Screening 1957 Preventative Health Evaluation 12/02/1963 Fall Risk Assessment 2010 RSV Adult > 60+ Yrs or (1 - 1-dose 75+ series) 2020 Influenza Vaccine (#1) 2025 2, 05/30/2021, 05/05/2021, Additional history exists DTap / Tdap / Td (3 - Td or Tdap) 03/04/2033 03/04/2023, 01/17/2013 Pneumococcal Vaccine Completed 08/02/2015, 07/17/2011, 10/22/2004 Shingrix-Zoster Vaccine Completed 07/21/2022, 12/23 Hepatitis B Vaccines Aged Out No long er eligible based on patient's age to complete this topic RSV Ped < 20 months Aged Out No longe r eligible based on patient's age to complete this topic Care Teams Insurance Service Representative Relationship Specialty Start Date End Date Kelsy Robins MD PCP - General Internal Medicine 07/08/19
--- OUTSIDE RECORDS SUMMARY | 2025-04-26 09:56 | XMS_ITS | Clinical Summary ---
Author Organization [facility] Address [address] [place] [phone] Phone Care Team Providers Care Senior Research Project Manager Name Role Phone Pcp, Unknown Primary Care Provider Unavailabl e Allergies No known active allergies Medications aspirin 81 mg chewable tablet Take 81 mg by mouth daily. Active atorvastatin (LIPITOR) 40 MG tablet Take 1 tablet by mouth daily. 1 Active carbidopa-levod opa (SINEMET) 25-100 mg per tablet Take 1 tablet by mouth. Active docusate sodium (COLACE) 100 MG capsule Take 100 mg by mouth 2 (two) times a day. Active polyethylene glycol (MIRALAX) 17 gram/dose powder Take 17 g by mouth daily. Active rasagiline (AZILECT) 1 mg Take 1 tablet by mouth. Active peg 400-propylene glycol (SYSTANE GEL) 0.4-0.3 % DrpG Apply to eye. Active triamcinolone acetonide 0.025 % creamIndication s:Dermatitis Apply topically 2 (two) times a day. 30 g 1 Active Active Problems No known active problems Social History Tobacco Use Types Packs/Day Years Used Date Smoking Tobacco: Former Smokeless Tobacco: Never Snuff Education Answer Date Recorded Are you interested in more education? Not on shantia e 12/27/2022 Are you concerned about learning? Not on file 12/27/2022 No 12/27/2022 No 12/27/2022 Digital Access Answer Date Recorded No 01/25/2023 No 01/25/2023 No 01/25/2023 Reliable internet access at home? Not on file 01/25/2023 Device with a working camera? Not on file Sex and Gender Information Value Date Recorded Sex Assigned at Not on file Legal Sex Male 1:12 PM EDT Gender Identity Not on file Sexual Orientation Not on file Last Filed Vital Signs Vital Sign Reading Time Taken Comments Blood Pressure 128/88 05/25/2021 1:53 PM EDT Pulse 70 05/25/2021 1:53 PM EDT Temperature 36.7 C (98 F) 05/25/2021 1:53 PM EDT Respiratory Rate 18 05/25/2021 1:53 PM EDT Oxygen Saturation 98% 05/25/2021 1:53 PM EDT Inhaled Oxygen Concentration - - Weight 63.5 kg (140 lb) 05/25/2021 1:53 PM EDT Height 172.7 cm (5' 8 ) 05/25/2021 1:53 PM EDT Body Mass Index 21.29 05/25/2021 1:53 PM EDT Plan of Treatment Health Maintenance Due Date Last Done Comments DEPRESSION SCREENING 1957 SMOKING Hx and SMOKELESS TOBACCO SCREENING 1958 HEPATITIS C SCREENING 12/02/1963 ZOSTER VACCINES (2 of 3) 03/25/2013 01/28/2013 RSV VACCINE (1 - 1-dose 75+ series) 2020 Adult Td,Tdap Booster 01/17/2023 01/17/2013 , 10/22/2004 COVID-19 VACCINE (3 - 2023-2 5 season) 2024 11/09/2020, 10/12/2020 LIPID PANEL 04/29/2026 04/29/2021 PNEUMOCOCCAL VACCINES (50+ years) Completed 08/02/2015, 07/17/2011, 10/22/2004 HEPATITIS A VACCINES Aged Out No long er eligible based on patient's age to complete this topic HIB VACCINES Aged Out No longer eligi ble based on patient's age to complete this topic MENINGOCOCCAL VACCINES (ACWY) Aged Out No longer eligible based on patient's age to complete this topic MENINGOCOCCAL VACCINES (B) Aged Out N o longer eligible based on patient's age to complete this topic Medical Devices Not on file Insurance [employer] [place] [address] [place] [address] [place] [address] [place] [address] HMO POS HMO POS HMO POS HMO POS [facility] HMO POS [facility] HMO POS Care Teams Senior Research Project Manager Relationship Specialty Start Date End Date Pcp, Unknown PCP - General 05/25/21 Additional Source Comments The information contained in this document represents components of the legal health record. It is not the complete legal health record.[facility]
== END 2025-04-26 10:11 | disposition home or self-care (01) ==
LOC: HO.HOS 09:23
PROVIDERS: PCP Internal Medicine; Visit Provider Physician Assistant
DX: M77.8 Other enthesopathies, not elsewhere classified (principal)
CPT/HCPCS: 20610; 99213

== ENCOUNTER → 2025-04-26 09:22 | Outpatient (BNVA) | payer MEDICARE, SELFPAY | PROVIDERS: PCP Internal Medicine; Visit Provider Physician Assistant | DX: M77.8 Other enthesopathies, not elsewhere classified (principal) | CPT/HCPCS: 20610; 99212; J0665; J1100; J2003 ==

== ENCOUNTER 2025-05-30 10:25 | Outpatient (AMB) | payer MEDICARE, SELFPAY ==
--- OUTSIDE RECORDS SUMMARY | 2024-08-19 06:30 | XMS_ITS ---
Author Organization [facility] Address [address] [address] Care Team Providers Care Airport Control Operator Name Role Phone Kelsy Robins Primary Care Provider Unavailabl ROMELIA Warren Unavailable [phone] REASON FOR VISIT Lt foot corn below pinky toe Encounters Encounter Location Date Provider Diagnosis [facility] [address] [address] 08/19/2024 ROMELIA WILCOX Plan Of Treatment No Information Progress Notes * Jl VYASDOB:1945 ([age] yo M)Acc No.[id number]:08/19/2024 Patient: Jl MOHAN Provider: Ricardo Wilcox DPM :1945 A ge:78 Y S ex:Male Date:08/19/2024 Phone: Address:[address] [place], [place] [address] [phone] Pcp:Kelsy Robins Subjective: * Chief Complaints: * 1 . Lt foot corn below pinky toe. * Medical History: Objective: * Vitals: Assessment: Plan: * Treatment: * Billing Information: * Visit Code: * Procedure Codes: * Electronic signature of ELICEO WILCOX D.P.M on 05/30/2025 at 11:35 AM EDT Sign off status: Pending * Provider: Ricardo Wilcox DPM Date: 10/20/2023 Generated for Quinten charles/Rupali/eTransmitting on: 0 05/30/2025 11:35 AM EDT
--- OUTSIDE RECORDS SUMMARY | 2024-09-07 09:00 | XMS_ITS ---
Author Organization [facility] Address [address] [address] Care Team Providers Care Veneer Layer Name Role Phone Kelsy Robins Primary Care Provider Unavailabl ROMELIA Warren Unavailable [phone] REASON FOR VISIT Lt foot corn below pinky toe Encounters Encounter Location Date Provider Diagnosis [facility] [address] [address] 09/07/2024 ROMELIA WILCOX Plan Of Treatment No Information Progress Notes * Jl VYASDOB:1945 ([age] yo M)Acc No.[id number]:09/07/2024 Patient: Jl MOHAN Provider: Ricardo Wilcox DPM :1945 A ge:78 Y S ex:Male Date:09/07/2024 Phone: Address:[address] [place], [place] [id number] Pcp:Kelsy Robins Subjective: * Chief Complaints: * 1 . Lt foot corn below pinky toe. * Medical History: Objective: * Vitals: Assessment: Plan: * Treatment: * Billing Information: * Visit Code: * Procedure Codes: * Electronic signature of ELICEO WILCOX D.P.M on 05/30/2025 at 11:34 AM EDT Sign off status: Pending * Provider: Ricardo Wilcox DPM Date: 09/07/2024 Generated for Quinten charles/Rupali/eTparamjitsmitting on: 0 05/30/2025 11:34 AM EDT
[2025-05-30 10:38] VITALS: BMI 19.8
--- NOTE | 2025-05-30 10:38 | A.OFFVIS_ITS ---
Vital Signs 05/30/25 10:38 Height 5 ft 8 in Weight 130 lb BMI 19.8 Intake Visit Reasons: OV: Bilateral CTS worsening Intake Note: Jl is a 79 year old right hand dominant male who presents today for follow up of his Bilateral Carpal Tunnel Syndrome, confirmed on EMG. He was last evaluated by Dr. Moreno on 12/08/23 where he denied numbness and tingling. Today patient complains of pain, described as a rubber band snapping on hand with brief intermittent hot pain on the dorsal aspect of the left ring finger. Patient denies actual numbness and tingling. Allergies No Known Allergies (No Known Allergies*) Allergy (Verified 05/30/25 10:40) HPI HPI OV: Bilateral CTS worsening: Details: Jl is a 79 year old right hand dominant male who presents today for follow up of his Bilateral Carpal Tunnel Syndrome, confirmed on EMG. He was last evaluated by Dr. Moreno on 12/08/23 where he denied numbness and tingling. Today patient complains of pain, described as a rubber band snapping on hand with brief intermittent hot pain on the dorsal aspect of the left ring finger. Patient does report that most of his pain is in the volar aspect of the finger, and this is where the ?snapping? occurs. Patient does report locking in a flexed position in his digit. Patient denies actual numbness and tingling. 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 Neuro: Normal sensation of the tips of all digits of the left hand at this time Vascular: Cap refill brisk Pain: Tenderness to palpation of the left ring finger A1 parvin No pain with range of motion of the left hand ROM: No visible or palpable locking or catching of the left ring finger in the office today Skin: No lacerations or abrasions. General: No ecchymosis, erythema, or evidence of infection. Psych: Appears grossly normal Affect normal Attitude cooperative Office Procedures AMB Tendon Injection Tendon Injection [id number] Tendon Sheath Injection All charges added?: Procedure code (CPT) selection complete Assessment & Plan Assessment & Plan (1) Trigger finger, left ring finger: Code(s): M65.342 - Trigger finger, left ring finger Category: Medical Plan 1. Left ring finger trigger finger Patient is educated about this condition Patient is educated about the typical treatment course Patient would like to proceed with steroid injection The risks and benefits of a steroid injection including but not limited to risk of damage to blood vessels, nerves, tendons, infection, skin bleaching, failure to improve symptoms, increased pain, and possible need for further injections or other intervention were discussed with the patient and the patient wishes to proceed with the steroid injection. Once consent was obtained, I sterilely prepped the area over the A1 parvin of the flexor tendon sheath of the left ring finger. I then injected the flexor tendon sheath with a combination of 1 mL of dexamethasone (4mg/ml), and 1% lidocaine. The patient tolerated the procedure well with no complications. If the patient continues to have locking and catching 4-6 weeks following this injection, they may call to schedule appointment to discuss alternative treatment options Follow-up prn Coding Level of Care Code Est Pt Level 3 (54125) Diagnoses Trigger finger, left ring finger M65.342 CPT Codes Tendon Injection - Tendon Injection 1: [id number] Tendon Sheath Injection ([id number])
--- OUTSIDE RECORDS SUMMARY | 2025-05-30 11:35 | XMS_ITS | Data Portability ---
Author Organization [place] - [facility] Former[facility], Allergy Address [address] [place] [id number] Care Team Providers Care Tar Distillation Supervisor Name Role Phone MIKE FISHER Primary Care Provider Assessment Encounter Date Assessment Date Assessment LastModified by Organization Details LastModified Time 08/22/2024 08/22/2024 Patient has normal mucosa of the tongue. 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 It is very possible he accidentally bit his tongue last month causing some small ecchymosis that his dentist was concerned about. He had several additional concerns regarding oily skin behind his ear and dry skin on his chest which I recommended he use warm soapy water to manage. [email or web address] Not available 08/22/2024 16:44:30 Plan of Treatment Reminders Order Date Submit Date Provider Last Modified By Organization Details Last Modified Time Details Appointments None record ed. Lab None record ed. Referral None record ed. Procedures None record ed. Surgeries None record ed. Imaging None record ed. Medication Orders None record ed. Patient TargetsNo targets recorded. Patient InstructionsNo instructions recorded. Reason for Referral None Reported. Problems Name Problem SNOMED Code Status Onset Date Resolution Date Notes Provider Name and Address Organization Details Recorded Time Lesion of tongue 375799810 Active 024 WOOD SHIELDS MD [address] [facility], [place], [id number] , [place] - [facility] 08/22/2024 16:36:46 Problem Notes None recorded. Medical Equipment None Reported. Allergies No known drug allergies Medications Name Sig Start Date Stop Date Status Note LastModified by Organization Details LastModified Time atorvastati n 40 mg tablet TAKE 1 TABLET DAILY active Not Available Not Available No t Available meloxicam 15 mg tablet TAKE 1 TABLET BY MOUTH EVERY DAY active Not Available Not Available No t Available acetaminoph en 500 mg tablet TAKE 2 ORAL THREE TIMES A DAY NEEDED PAIN active Not Available Not Available No t Available prednisolon e acetate 1 % eye drops,suspe nsion INSTILL 1 DROP INTO BOTH EYES THREE TIMES A DAY DIRECTED USE FOR 2 WEEKS THEN DISCONTIN UE active Not Available Not Available No t Available minocycline 50 mg capsule TAKE 1 CAPSULE BY MOUTH EVERY DAY active Not Available Not Available No t Available carbidopa 25 mg-levodopa 100 mg tablet TAKE 1 TABLET FIVE TIMES A DAY active Not Available Not Available No t Available oxycodone 5 mg tablet TAKE 1 TABLET BY MOUTH 2 TIMES A DAY NEEDED FOR PAIN. 08/22 completed Not Available Not Available Not Available Restasis 0.05 % eye drops in a dropperette INSTILL 1 DROP INTO BOTH EYES TWICE A DAY active Not Available Not Available No t Available rasagiline 1 mg tablet TAKE 1 TABLET EVERY MORNING active Not Available Not Available No t Available AzaSite 1 % eye drops INSTILL ONE DROP INTO RIGHT EYE TWICE A DAY FOR 2 WEEKS EVERY 6 WEEKS active Not Available Not Available No t Available Xdemvy 0.25 % eye drops active Not Available Not Available Not Available Vitals Date Recorded Body height Body mass index (BMI) Body weight Provider Name and Address Organization Details Last Updated DateTime 08/22/2024 172.72 cm 18.9 kg/m2 46643.45 g Tejal Lima [place] - [facility] 08/22/2024 16:15:04 Social History None recorded. Functional Status None recorded. Mental Status None recorded. Family History Nothing Reported. Medical History No medical history recorded. Past Encounters Encounter ID Performer Location Encounter Start Date Encounter Closed Date Diagnosis/Indication Diagnosis SNOMED-CT Code Diagnosis ICD10 Code Diagnosis IMO Codes Diagnosis Note [id number] WOOD SHIELDS MD [facility] [address] [phone] 08/22/2024 15:00:15 08/22/2024 16:43:34 Lesion of tongue 441252851 K14.9 Health Concerns Section Related Observation LastModified by Organization Detai ls LastModified Time None Recorded Concern Status LastModified by Organization Details LastModified Time None Recorded Advance Directives Directive None Recorded Payers Insurance Date Sequence Insurance Name Policy Number Policy Fung Covered Member ID Fung Member ID Guarantor Name 08/22/2024 1 [place] [employer] Jl B Vyas [id number] Jl B Vyas 08/22/2024 2 [place] [id number] Jl B Vyas [id number] Jl B Vyas Notes Date Note Type Note Provider Name and Address Organization Details Recorded Time 08/22/2024 text/html ROS as noted in the HPI RIGHT tongue lesionnoted by dentist in Julyrecalls he bites his tongue in that areano bleedingtobacco - denies PMHx - Parkinson WOOD SHIELDS MD [address] [place] [address], [place], [phone], [facility] - [facility] 08/22/2024 16:44:49
--- OUTSIDE RECORDS SUMMARY | 2025-05-30 11:35 | XMS_ITS | Clinical Summary ---
Author Organization [facility] Address [address] [place] [id number] Phone Care Team Providers Care Identity Management Consultant Name Role Phone Pcp, Unknown Primary Care [...] you interested in more education? Not on shanita e 12/27/2022 Are you concerned about learning? [...] 75+ series) 2020 Adult Td,Tdap Booster 01/17/2023 01/17/2013, 005 INFLUENZA VACCINE (#1) 2025 , 05/05/2021, 04/30/2020, Additional history exists COVID-19 VACCINE ( - season) 2025 11/09/2020, 10/12/2020 LIPID PANEL 04/29/2026 04/29/2021 PNEUMOCOCCAL [...] topic Medical Devices Not on file Insurance [facility] HMO POS [facility] H[facility] POS [facility] POS [facility] POS [facility] POS [facility] HMO POS [facility] HMO POS [facility] [place] [address] [place] [address] HMO POS Care Teams Identity Management Consultant Relationship Specialty Start Date End Date Pcp, Unknown PCP - General 05/25/21 Additional Source Comments The information contained in this document represents components of the legal health record. It is not the complete legal health record.[facility]
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
--- OUTSIDE RECORDS SUMMARY | 2025-05-30 11:35 | XMS_ITS | Clinical Summary ---
Author Organization [facility] Address [address] [place] [address] Care Team Providers Care Proposal Development Manager Name Role Phone Kelsy Robins MD Primary Care Provider [phone] Allergies No known active allergies Medications Medication [...] age to complete this topic Care Teams Proposal Development Manager Relationship Specialty Start Date End Date Kelsy Robins MD PCP - General Internal Medicine 07/08/19
--- OUTSIDE RECORDS SUMMARY | 2025-05-30 11:35 | XMS_ITS | Patient Health Record ---
Author Organization [facility] Address [address] [facility] [address] [place] [address] Care Team Providers Care Utility Engineer Name Role Phone LeathaAguileraKelsy Primary Care Provider ROMELIA Scott Unavailable [phone] Allergies No Known Allergies Reason For Referral [...]
== END 2025-05-30 11:30 | disposition home or self-care (01) ==
LOC: HO.HOS 10:25
PROVIDERS: PCP Internal Medicine
DX: M65.342 Trigger finger, left ring finger (principal)
CPT/HCPCS: 20550; 99213

== ENCOUNTER → 2025-05-30 10:25 | Outpatient (BNVA) | payer MEDICARE, SELFPAY | PROVIDERS: PCP Internal Medicine | DX: M65.342 Trigger finger, left ring finger (principal) | CPT/HCPCS: 20550; 99212; J1100; J2003 ==

== ENCOUNTER 2025-06-07 10:34 | Outpatient (AMB) | payer MEDICARE, SELFPAY ==
--- NOTE | 2025-06-07 10:50 | A.OFFVIS_ITS ---
Intake Visit Reasons: 6m PD Allergies No Known Allergies (No Known Allergies*) Allergy (Verified 05/30/25 10:40) Medication List - Last Reconciled 06/07/25 by Margo Martin MD acetaminophen (Tylenol Extra Strength) 500 mg PO Q6H PRN aspirin 81 mg PO DAILY atorvastatin 40 mg PO DAILY carbidopa-levodopa 25-100 mg 1 tab PO QID 90 days celecoxib (Celebrex) 200 mg PO BID 30 days minocycline 50 mg PO DAILY rasagiline 1 mg PO DAILY 90 days HPI Comments Details: 79-year-old man with Parkinson's disease . He has been doing well except for one episode of low BP. Fell 2 months ago blowing leaves and got entangled. Still drives at times. Feels a bit unsteady and may trip. Still climbing 12 foot ladders. Low back pain has been acting up . Taking Meloxicam PRN and 2 Advil daily. Gets mild tremors. No back injections only last 2 weeks. Only 2 minor episodes of dizziness when he gets up fast. His memory is not as sharp but is stable. Some decline in vocabulary. MRI brain and orbit was negative. Dizziness on getting up and no more brief syncopal episodes. No falls. Was found to have orthostatic hypotension. No change in balance. Functioning about the same. Occasionally his speech is slurred but is better. Takes longer to think and explain and needs more time to do things. CTA was normal. No change in his shuffling. Trouble buttoning and writing. Had lot of acting out of dreams at night and may be violent almost every night.Tremors started about early 2012, occur intermittently and initially started in the right hand but now more in the left. Occasional pain pills. He has no muscle rigidity, slowness or gait problems. There is no family history of tremor. Some memory problems. Not using CPAP sleep apnea device. 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 Difficulty getting to sleepdenies.? Difficulty maintaining sleepdenies?.? Urge to move legsdenies.? Teeth grindingdenies.? Shouting or Kicking during sleep admits.? Abnormal behavior during sleepdenies.? Excessive sleepdenies.? Snoring denies.? Daytime sleepinessdenies. ???General/Constitutional:? Change in appetitedenies.? Chillsdenies.? Fatiguedenies.? Feverdenies.? Weight gaindenies.? Weight lossdenies. ???Ophthalmologic:? Blurred visiondenies.? Diminished visual acuitydenies. ???ENT:? Stuffinessdenies.? Decreased hearingdenies.? Dry mouthdenies.? Ear paindenies.? Nosebleeddenies.? Ringing in the earsdenies.? Sinus paindenies.? Sore throat denies.? Swollen glandsdenies. ???Endocrine:? Cold intolerancedenies.? Excessive thirstdenies.? Frequent urinationdenies.? Heat intolerancedenies. ???Respiratory:? Shortness of breathdenies.? Chest paindenies.? Coughdenies. ???Breast:? Breast lumpdenies.? Nipple dischargedenies. ???Cardiovascular:? Chest pain at restdenies.? Chest pain with exertiondenies.? Claudicationdenies .? Dizzinessdenies.? Fluid accumulation in the legsdenies.? Irregular heartbeat denies.? Palpitationsdenies. ???Gastrointestinal:? Abdominal paindenies.? Constipationdenies.? Diarrheadenies.? Difficulty swallowingdenies.? Heartburndenies.? Nauseadenies.? Rectal bleedingdenies. ???Hematology:? Easy bruisingdenies.? Prolonged bleedingdenies. ???Genitourinary:? Frequent urinationdenies.? Urgencydenies.? Incontinencedenies.? Erectile Dysfunctiondenies. ???Musculoskeletal:? Neck paindenies.? Back painadmits.? Muscle achesadmits.? Painful jointsdenies.? Sciaticadenies.? Weaknessdenies. ???Podiatric:? Difficulty walkingdenies.? Foot numbnessdenies. ???Neurologic:? Difficulty swallowingdenies.? Balance difficultydenies.? Coordinationnormal.? Difficulty speakingdenies.? Dizzinessdenies.? Faintingdenies.? Gait abnormality denies.? Headachedenies.? Loss of strengthdenies.? Loss of use of extremity denies.? Low back painadmits.? Memory lossdenies.? Seizuresdenies.? Ticsdenies.? Tingling/Numbnessdenies.? Transient loss of visiondenies.? Tremorthat is at rest . ???Psychiatric:? Anxietydenies.? Auditory/visual hallucinationsdenies.? Delusionsdenies.? Depressed mooddenies.? Stressorsdenies.? Substance abusedenies.? Suicidal thoughtsdenies. Physical Exam Neuro Other: Neurological: Abnormal neurological findings:??Prominent pill rolling Parkinsonian tremors BUE. Slight decrease in facial expression. Bradylinesia Walks with a good stride and arm swing.?.?Mental Status:??alert and oriented X 3,?Normal attention, orientation, memory and affect.?Cranial Nerves:??Pupils are equal, round and reactive to light. Fundoscopy shows normal disc bilaterally. External occular muscles are intact. Visual kirk are full, no ptosis. Face is symmetrical, no facial weakness or droop. Facial sensations are normal. Tongue protrudes in midline. Palate elevates symmetrically. Shoulder shrugging is normal..?Motor Examination:??Normal muscle tone, bulk and strength,?No atrophy or fasciculations,?No drift of the extended upper extremities,?Deep tendon reflexes are 2+?,?Plantars are flexor?.?Straight Leg Raising:??90 degrees.?Sensory Exam:??Normal light touch, temperature, pinprick, vibration and joint-position sensations?,?Rhomberg sign is absent.?Coordination:??no ataxia,?no titubation,?qsmvat-am-fuij, lgqz-ucuf-wvtq test and rapid alternating movements were normal.?Gait Exam:??Within normal limits.?Cerebellar Signs:??Ihgwxj-qz-wksl and fbmo-tb-llti is normal,?no dysdiadochokinesia?.?Extrapyramidal System:??No rigidity with decreased facial expressions,No bradykinesia, no bradyphrenia. Normal arm swing and posture. No propulsion or retropulsion. Tremors as above,.?Speech:??Normal,?no dysphasia or dysarthria..? Mini Mental Status Exam: Level of Consciousness:??Alert.?Orientation:??Knows correct year, month, date, day and season,?Knows correct city, county and state. Knows correct location and floor.?Registration:??Able to register 3 objects.?Attention:??Serial 7's performed accurately.?Recall:??Able to recall 3 out of 3 objects.?Language:??Normal spontaneous speech, fluency, repetition,naming, comp rehension, reading and writing.?Total Score:??30/30.? General Examination: GENERAL APPEARANCE:??normal,?in no acute distress.?HEAD:??normocephalic,?atraumatic.?EYES:??sclera non- icteric,?conjunctiva clear.?EARS:??auditory canal clear,?tympanic membrane intact, clear.?NOSE:??no lesions.?ORAL CAVITY:??gums normal,?mucosa moist,?no lesions.?THROAT:??clear.?NECK/THYROID:??no cervical lymphadenopathy,?thyroid normal,?neck supple, full range of motion,?no carotid bruit.?SKIN:??no rashes,?no significant birthmarks.?HEART:??S1, S2 normal,?no murmurs.?LUNGS:??clear anteriorly and posteriorly.?CHEST:??no gross rib deformity,?clear to auscultation.?BACK:??normal exam of spine.?EXTREMITIES:??no edema.?PERIPHERAL PULSES:??normal.?PSYCH:??alert, oriented,?cognitive function intact,?cooperative with exam.? Assessment & Plan Assessment & Plan (1) Parkinsons disease: Code(s): G20.A1 - Parkinson's disease without dyskinesia, without mention of fluctuations Category: Medical Qualifiers: Dyskinesia presence: without dyskinesia Fluctuating manifestations: with fluctuating manifestations Qualified Code(s): G20.A2 - Parkinson's disease without dyskinesia, with fluctuations Plan continue current meds. No working on ladders Coding Level of Care Code Est Pt Level 4 (61228) Diagnoses Parkinson's disease without dyskinesia, with fluctuating manifestations G20.A2 Dyskinesia presence: without dyskinesia Fluctuating manifestations: with fluctuating manifestations
== END 2025-06-07 11:07 | disposition home or self-care (01) ==
LOC: HO.HSM 10:35
PROVIDERS: PCP Internal Medicine; Referring Provider Internal Medicine; Visit Provider Psychiatry & Neurology Neurology
DX: G20.A2 Parkinson's disease without dyskinesia, with fluctuations (principal)
CPT/HCPCS: 99214

== ENCOUNTER → 2025-06-07 10:34 | Outpatient (BNVA) | payer MEDICARE, SELFPAY | PROVIDERS: PCP Internal Medicine; Referring Provider Internal Medicine; Visit Provider Psychiatry & Neurology Neurology | DX: G20.A2 Parkinson's disease without dyskinesia, with fluctuations (principal) | CPT/HCPCS: 99212 ==

== ENCOUNTER 2025-07-14 08:19 | Outpatient (AMB) | payer MEDICARE, SELFPAY ==
--- OUTSIDE RECORDS SUMMARY | 2024-08-19 05:30 | XMS_ITS ---
Author Organization [facility] Address [address] [address] Care Team Providers Care Area Mechanic Name Role Phone Kelsy Robins Primary Care Provider Unavailabl ROMELIA Warren Unavailable [phone] REASON FOR VISIT Lt foot corn below pinky toe Encounters Encounter Location Date Provider Diagnosis [facility] [address] [address] 08/19/2024 ROMELIA WILCOX Plan Of Treatment No Information Progress Notes * Jl VYASDOB:1945 ([age] yo M)Acc No.[id number]:08/19/2024 Patient: Jl MOHAN Provider: Ricardo Wilcox DPM :1945 A ge:78 Y S ex:Male Date:08/19/2024 Phone: Address:[address] [place], [place] [id number] Pcp:Kelsy Robins Subjective: * Chief Complaints: * 1 . Lt foot corn below pinky toe. * Medical History: Objective: * Vitals: Assessment: Plan: * Treatment: * Billing Information: * Visit Code: * Procedure Codes: * Electronic signature of ELICOE WILCOX D.P.M on 07/14/2025 at 08:30 AM EST Sign off status: Pending * Provider: Ricardo Wilcox DPM Date: 10/20/2023 Generated for Quinten charles/Rupali/Ciraitting on: 09/13/2024 08:30 AM EST
--- OUTSIDE RECORDS SUMMARY | 2024-09-07 08:00 | XMS_ITS ---
Author Organization [facility] Address [address] [address] Care Team Providers Care Advertising Director Name Role Phone Kelsy Robins Primary Care Provider Unavailabl ROMELIA Warren Unavailable [phone] REASON FOR VISIT Lt foot corn below pinky toe Encounters Encounter Location Date Provider Diagnosis [facility] [address] [address] 09/07/2024 ROMELIA WILCOX Plan Of Treatment No Information Progress Notes * Jl VYASDOB:1945 ([age] yo M)Acc No.[id number]:09/07/2024 Patient: Jl MOHAN Provider: Ricardo Wilcox DPM :1945 A ge:78 Y S ex:Male Date:09/07/2024 Phone: Address:[address] [place], [place] [id number] Pcp:Kelsy Robins Subjective: * Chief Complaints: * 1 . Lt foot corn below pinky toe. * Medical History: Objective: * Vitals: Assessment: Plan: * Treatment: * Billing Information: * Visit Code: * Procedure Codes: * Electronic signature of ELICEO WILCOX D.P.M on 07/14/2025 at 08:29 AM EST Sign off status: Pending * Provider: Ricardo Wilcox DPM Date: 0 09/07/2024 Generated for Quinten charles/Rupali/Ciraitting on: 09/13/2024 08:29 AM EST
[2025-07-14 08:26] VITALS: BMI 19.8
--- NOTE | 2025-07-14 08:26 | A.OFFVIS_ITS ---
Vital Signs 07/14/25 08:26 Height 5 ft 8 in Weight 130 lb BMI 19.8 Intake Visit Reasons: OV- Right shoulder pain Intake Note: Jl is a 79 year old male who presents today as a follow up on his right shoulder, last injection on 04/26/25. Patient reports that he continues to have an ongoing pain that he describes as a sharp stabbing pain. Allergies No Known Allergies (No Known Allergies*) Allergy (Verified 07/14/25 08:35) Medication List - Last Reconciled 07/14/25 by JEREMY Roman-Misty acetaminophen (Tylenol Extra Strength) 500 mg PO Q6H PRN aspirin 81 mg PO DAILY atorvastatin 40 mg PO DAILY carbidopa-levodopa 25-100 mg 1 tab PO QID 90 days celecoxib (Celebrex) 200 mg PO BID 30 days minocycline 50 mg PO DAILY rasagiline 1 mg PO DAILY 90 days HPI HPI OV- Right shoulder pain: Details: 79 yo male returns to the office today f/u right shoulder pain s/p injection. He states the injection was helpful but only last about 2 weeks. He continues to experience difficulty with lifting and reaching but states his fibromyalgia and parkinsons contribute to this. 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 Full ROM in all planes. Positive Ahmadi. 5/5 RTC strength. NVI Office Procedures AMB Joint Injection/Aspiration Joint Injection/Aspiration Primary Site: Right Shoulder Prep: site was prepped using aseptic technique, ethochloride spray was applied and injection warnings given Injected: 40 mg of, Decadron, with 3 mL of, 1% plain Lidocaine, 0.25% Bupivacaine and in the subcromial space Approach Used: posterolateral Procedure: The patient tolerated the procedure well and there was some relief with the local anesthesia Coding 52034 - Glenohumeral/Tronchanteric Bursa/Intraarticular Procedure code (CPT) selection complete Assessment & Plan Assessment & Plan (1) Right shoulder tendonitis: Code(s): M77.8 - Other enthesopathies, not elsewhere classified Category: Medical Plan: We discussed options today which include steroid injection to help relieve his symptoms. Patient did consent to right shoulder injection which she tolerated well. He will continue with activities as tolerated and if symptoms arise or persist he will contact our office otherwise follow up as needed. Coding Level of Care Code Est Pt Level 3 (63296) Complex EM visit Add On G2211 Diagnoses Right shoulder tendonitis M77.8 CPT Codes Coding - Joint 7: 86500 - Glenohumeral/Tronchanteric Bursa/Intraarticular ([id number])
--- OUTSIDE RECORDS SUMMARY | 2025-07-14 08:30 | XMS_ITS | Clinical Summary ---
Author Organization [facility] Address [address] [place] [address] Care Team Providers Care Carburetor Rebuilder Name Role Phone Kelsy Robins MD Primary Care Provider [phone] Allergies No known active allergies Medications Medication [...] age to complete this topic Care Teams Carburetor Rebuilder Relationship Specialty Start Date End Date Kelsy Robins MD PCP - General Internal Medicine 07/08/19
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
--- OUTSIDE RECORDS SUMMARY | 2025-07-14 08:30 | XMS_ITS | Patient Health Record ---
Author Organization [facility] Address [address] [facility] [address] [place] [address] Care Team Providers Care Seals Engraver Name Role Phone LeathaAguileraKelsy Primary Care Provider ROMELIA Scott Unavailable [phone] Allergies No Known Allergies Reason For Referral [...]
--- OUTSIDE RECORDS SUMMARY | 2025-07-14 08:30 | XMS_ITS | Clinical Summary ---
Author Organization [facility] Address [address] [place] [phone] Phone Care Team Providers Care Shot Bagger Name Role Phone Pcp, Unknown Primary Care [...] 05/05/2021, 04/30/2020, Additional history exists COVID-19 VACCINE (3 - season) 2025 11/09/2020, 10/12/2020 LIPID PANEL 04/29/2026 04/29/2021 PNEUMOCOCCAL VACCINES (50+ years) Completed 08/02/2015, 07/17/2011, 10/22/2004 HEPATITIS A VACCINES Aged Out No long er eligible based on patient's age to complete this topic HIB VACCINES Aged Out No longer eligi ble based on patient's age to complete this topic IPV VACCINES Aged Out No longer eligi ble based on patient's age to complete this topic MENINGOCOCCAL VACCINES (ACWY) Aged Out No longer eligible based on patient's age to complete this topic MENINGOCOCCAL VACCINES (B) Aged Out N o longer eligible based on patient's age to complete this topic Medical Devices Not on file [place] [address] [place] [address] [place] [address] [place] [address] [place] [address] HMO POS [facility] HMO POS [facility] HMO POS [facility] HMO POS [facility] HMO POS [facility] HMO POS [facility] HMO POS Care Teams Shot Bagger Relationship Specialty Start Date End Date Pcp, Unknown PCP - General 05/25/21 Additional Source Comments The information contained in this document represents components of the legal health record. It is not the complete legal health record.[facility]
== END 2025-07-14 09:20 | disposition home or self-care (01) ==
LOC: HO.HOS 08:20
PROVIDERS: PCP Internal Medicine; Visit Provider Physician Assistant
DX: M77.8 Other enthesopathies, not elsewhere classified (principal)
CPT/HCPCS: 20610; 99213

== ENCOUNTER → 2025-07-14 08:19 | Outpatient (BNVA) | payer MEDICARE, SELFPAY | PROVIDERS: PCP Internal Medicine; Visit Provider Physician Assistant | DX: M77.8 Other enthesopathies, not elsewhere classified (principal); M25.511 Pain in right shoulder | CPT/HCPCS: 20610; 99212; J0665; J1100; J2003 ==